=== PATIENT | female | born 1955 | race Caucasian/White ===

== ENCOUNTER 2016-08-01 21:01 | Emergency (ER) | payer BC ==
[~2016-08-01] VITALS: Ht 152.4 cm; Wt 65.0 kg
[~2016-08-01 21:01] MED LIST: ALEN40TA2 PO; CALC-762 PO; IBUP-1542 PO; LOSA50TA6 PO; NAPR-688 PO; OMEP20CA16 PO; SIMV-39 PO
[2016-08-01 21:22] VITALS: Ht 152.4 cm; Wt 65.0 kg
[2016-08-02] MEDS ORDERED: KETOROLAC 30 MG INJ IM STA (00:19)
--- NOTE | 2016-08-02 02:10 | RADRPT ---
PROCEDURE: CT BRAIN WITHOUT CONTRAST CLINICAL INDICATION: 60-year-old female with headaches. TECHNIQUE: The study was performed utilizing a GE Open[employer] + Tuck VCT 64-slice CT scanner. Direct axia l sections were obtained from the foramen magnum to the vertex without the use of intravenous contra st material. Sagittal and coronal reformations were obtained. Automated exposure control and iterat perlita reconstruction techniques were utilized for this examination. The images were viewed on a PACS workstation. CTD/vol = 45.0 mGy; Total Exam DLP = 720.0 mGy-cm. COMPARISON: CT brain September 06, 2015. FINDINGS: The ventricles have a normal size, shape and position. There is no evidence for mass effect or midl ine shift. There are no intracranial areas of abnormal attenuation. There is no evidence for acute intra or extra-axial blood. The bony calvarium is intact. The visualized paranasal sinuses and mast oid air cells are without abnormal soft tissue. IMPRESSION: Unremarkable noncontrast CT scan of the brain. .Milton Rodriguez MD, MD Date Time Electronically viewed and signed by .Milton Rodriguez MD, on 08/02/2016 02:09 .M/
[2016-08-02] MEDS ORDERED: ACET500C5 PO (02:24)
--- NOTE | 2016-08-02 02:39 | ERD ---
ER Documentation Chief Complaint Date/Time DATE: 08/02/16 TIME: 02:29 Chief Complaint headaches x 3 days, facial swelling today HPI 40-year-old female complaining of headache 3 months. She gets headaches daily , and able to localize or describe the pain. She has not taken any medications for pain at home. Patient also complaining of left-sided facial swelling. Patient stated that she has right-sided facial drooping and decreased sensation 4 month. She was seen by her PCP, was sent her for physical therapy. Physical therapy, they massage the right side of her face. In addition, patient complained of feeling dizzy for last 2-3 weeks. She described the dizziness as off balance feeling when she walking, as though it was pulling her on one side. Denies facial pain. Denies fever or chills. Denies peripheral numbness or weakness. Denies recent head injuries. ROS All systems reviewed and are negative except as per history of present illness. Medications Home Meds Active Scripts Acetaminophen* (Tylophen*) 500 Mg Capsule, 1 CAP PO Q6H Y for PAIN AND OR ELEVATED TEMP, #20 CAP Prov:DANIKA BLACK LEASE PURCHASE TRUCK DRIVER 08/02/16 Ibuprofen* (Ibuprofen*) 600 Mg Tablet, 600 MG PO Q6H Y for MILD PAIN LEVEL 1-3, #30 TAB Prov:LISSY ESCOBAR LEASE [employer]CHASE TRUCK DRIVER 04/04/15 Reported Medications Omeprazole* (Omeprazole*) 20 Mg Capsule.dr, 20 MG PO DAILY, #30 CAP 02/07/16 Calcium Carbonate/Vitamin D3 (Oyster Shell Calcium + D Cplt) 1 Each Tablet, 1 EACH PO, TAB 02/07/16 Simvastatin* (Simvastatin*) 80 Mg Tablet, 20 MG PO QHS, #30 TAB 02/07/16 Losartan Potassium* (Losartan Potassium*) 50 Mg Tablet, 50 MG PO DAILY, TAB 02/07/16 Alendronate Sodium* (Alendronate Sodium*) 40 Mg Tablet, 70 MG PO DAILY, #30 TAB 02/07/16 Naproxen* (Naproxen*) 500 Mg Tablet, 500 MG PO BID Y for INFLAMATION, TAB 10/13/14 Allergies Allergies: Coded Allergies: No Known Allergy (Verified , 02/07/16) PMhx/Soc Medical and Surgical Hx: pt denies Medical Hx, pt denies Surgical Hx History of Surgery: Yes (Ex Lap x9 for Colon CA) Anesthesia Reaction: No Hx Neurological Disorder: No Hx Respiratory Disorders: No Hx Cardiac Disorders: No Hx Psychiatric Problems: No Hx Miscellaneous Medical Probl: Yes (Colon CA) Hx Alcohol Use: No Hx Substance Use: No Hx Tobacco Use: No Smoking Status: Never smoker Physical Exam Vitals Vital Signs Date Time Temp Pulse Resp B/P Pulse Ox O2 Delivery O2 Flow Rate FiO2 08/01/16 21:22 98.3 52 20 139/71 98 Physical Exam General impression: Well-developed, well-nourished. Alert, oriented, in no acute distress Head: Normocephalic, atraumatic. Right-sided facial droop and right-sided facial muscle atrophy noted. Eyes: PERRL, EOM normal. Conjunctiva not injected. Neck: Supple, nontender. No lymphanopathy. No nuchal rigidity. Respiration: Normal respiratory effort. Lungs clear to auscultate bilaterally. No wheezes, rales or rhonchi. Cardiovascular: Regular rate and rhythm. No murmurs or extra heart sounds. Extremities: Extremities normal to inspection, nontender. ROM normal. Neuro: Mental status normal, speech normal. Right-sided facial droop and decreased sensation. VEHICLE FUEL SYSTEMS CONVERTER otherwise intact. Normal sensation and strength in all 4 extremities. No focal weakness noted. Romberg negative. Skin: Normal turgor. No rash or lesions. Psych: Normal mood and affect. Results 24 hrs Current Medications Medications (Trade) Dose Ordered Sig/[place] Route PRN Reason Start Time Stop Time Status Last Admin Dose Admin Ketorolac Tromethamine (Toradol) 30 mg ONCE STAT IM 08/02/16 00:19 08/02/16 00:33 DC 08/02/16 00:44 Procedures/MDM Toradol 30 mg IM given to the patient in the ED for headache. Patient reports improvement of pain after Toradol. CT head without IV contrast of the obtained. CT head was normal, no intracranial hemorrhage or mass noted. Likely patient headache is a tension type. Patient also has Perkins's palsy. Since patient symptoms has been persistent for 4 month, I do not feel prednisone is helpful at this time. She does not have any peripheral weakness or decreased sensation, I doubt stroke. Explained to the patient that Perkins's palsy symptoms may take 3-6 months to resolve, occasionally they do not. Patient appears well, stable for discharge and outpatient management. Medical decision making shared with patient and family. Education provided to patient and family. Patient and family expressed understanding of the plan. Medications on discharge: Tylenol. Follow-up: Primary care provider in 2-3 days or return to ED if worse. Departure Diagnosis: Primary Impression: Perkins's palsy Additional Impression: Headache Headache type: tension-type Headache chronicity pattern: acute headache Intractability: not intractable Qualified Code: G44.209 - Acute non intractable tension-type headache Condition: Stable Patient Instructions: Self-Care for Headaches Additional Instructions: Llame al doctor MAANA y kathy tomy JES PARA DENTRO DE 2-3 RIVAS.Dgale a la secretaria que nosotros le instruimos hacer esta jes.Avise o llame si sumner condicin se empeora antes de la jes. Regresa aqui si peor o no mejor. DANIKA BLACK NP Aug 02, 2016 02:39
[2016-08-02 03:21] VITALS: BP 131/75; PULSE 70; RESP 16
== END 2016-08-02 03:23 | disposition home or self-care (01) ==
LOC: FTE 21:01
DX: G51.0 Bell's palsy (principal); G44.209 Tension-type headache, unspecified, not intractable; Z85.038 Personal history of other malignant neoplasm of large intestine
CPT/HCPCS: 70450; J1885; 96372

== ENCOUNTER 2017-02-09 08:36 | Emergency (ER) | payer BC ==
[~2017-02-09] VITALS: Ht 154.9 cm; Wt 67.0 kg
[~2017-02-09 08:36] MED LIST changes: +ACET500C5 PO
[2017-02-09 08:42] VITALS: Ht 154.9 cm; Wt 67.0 kg
[2017-02-09] MEDS ORDERED: KETOROLAC 30 MG INJ IV STA (09:18)
[2017-02-09 09:24] LABS: BASOPHIL # 0.1 10^3/ul (0.0-0.1); BASOPHILS % 1.2 % (0.0-2.0); EOSINOPHILS # 0.1 10^3/ul (0.0-0.5); EOSINOPHILS % 1.4 % (0.0-7.0); HEMOGLOBIN 12.8 g/dl (12.0-16.0); LYMPHOCYTES # 1.3 10^3/ul (0.8-2.9); MEAN CORPUSCULAR HEMOGLOBIN 28.4 pg (29.0-33.0); MEAN CORPUSCULAR HGB CONC 31.2 g/dl (32.0-37.0); MEAN CORPUSCULAR VOLUME 90.9 fl (82.0-101.0); MEAN PLATELET VOLUME 9.6 fl (7.4-10.4); MONOCYTE # 0.3 10^3/ul (0.3-0.9); MONOCYTES % 6.7 % (0.0-11.0); PLATELET COUNT 307 10^3/UL (140-415); RED BLOOD COUNT 4.51 10^6/ul (4.20-5.40); RED CELL DISTRIBUTION WIDTH 13.9 % (11.5-14.5); WHITE BLOOD COUNT 4.2 10^3/ul (4.8-10.8)
--- NOTE | 2017-02-09 09:25 | ERD ---
ER Documentation Chief Complaint Date/Time DATE: 02/09/17 TIME: 09:23 Chief Complaint "vaginal bleeding since earlier this morning" HPI This is a 61-year-old female who presents to the emergency department today complaining of vaginal bleeding that started yesterday. Patient states that she noticed it was a little bit but had more this morning. States she also has some right-sided abdominal pain. States she has a history of colon cancer and had 9 surgeries for her colon. States she last followed up with her doctor about her colon cancer 2 years ago. She has an appointment with her FINGER GRIP MACHINE OPERATOR in 1 month. States she has not had her menstrual period in many many years since her child was born who is now 21. Denies any dysuria, fevers or chills, vomiting or diarrhea. ROS All systems reviewed and are negative except as per history of present illness. Medications Home Meds Active Scripts Cephalexin* (Keflex*) 500 Mg Capsule, 500 MG PO QID for 7 Days, CAP Prov:LISA VAUGHAN PA-C 02/09/17 Naproxen* (Naprosyn*) 500 Mg Tablet, 500 MG PO BID Y for PAIN AND/OR INFLAMMATION, #30 TAB Prov:LISA VAUGHAN PA-C 02/09/17 Tramadol HCl (Tramadol HCl) 50 Mg Tablet, 50 MG PO Q4 Y for PAIN, #20 TAB Prov:LISA VAUGHAN PA-C 02/09/17 Acetaminophen* (Tylophen*) 500 Mg Capsule, 1 CAP PO Q6H Y for PAIN AND OR ELEVATED TEMP, #20 CAP Prov:DANIKA BLACK IMMIGRATION SERVICES OFFICER 08/02/16 Ibuprofen* (Ibuprofen*) 600 Mg Tablet, 600 MG PO Q6H Y for MILD PAIN LEVEL 1-3, #30 TAB Prov:LISSY ESCOBAR NP 04/04/15 Reported Medications Omeprazole* (Omeprazole*) 20 Mg Capsule.dr, 20 MG PO DAILY, #30 CAP 02/07/16 Calcium Carbonate/Vitamin D3 (Oyster Shell Calcium + D Cplt) 1 Each Tablet, 1 EACH PO, TAB 02/07/16 Simvastatin* (Simvastatin*) 80 Mg Tablet, 20 MG PO QHS, #30 TAB 02/07/16 Losartan Potassium* (Losartan Potassium*) 50 Mg Tablet, 50 MG PO DAILY, TAB 02/07/16 Alendronate Sodium* (Alendronate Sodium*) 40 Mg Tablet, 70 MG PO DAILY, #30 TAB 02/07/16 Naproxen* (Naproxen*) 500 Mg Tablet, 500 MG PO BID Y for INFLAMATION, TAB 10/13/14 Allergies Allergies: Coded Allergies: No Known Allergy (Verified , 02/07/16) PMhx/Soc History of Surgery: Yes (Ex Lap x9 for Colon CA) Anesthesia Reaction: No Hx Neurological Disorder: No Hx Respiratory Disorders: No Hx Cardiac Disorders: No Hx Psychiatric Problems: No Hx Miscellaneous Medical Probl: Yes (Colon CA, TMJ) Hx Alcohol Use: No Hx Substance Use: No Hx Tobacco Use: No Physical Exam Vitals Vital Signs Date Time Temp Pulse Resp B/P Pulse Ox O2 Delivery O2 Flow Rate FiO2 02/09/17 11:57 52 21 114/59 98 Room Air 02/09/17 08:42 98.7 62 18 127/73 98 Physical Exam Const: No acute distress Head: Atraumatic Eyes: Normal Conjunctiva ENT: Normal External Ears, Nose and Mouth. Neck: Full range of motion..~ No meningismus. Resp: Clear to auscultation bilaterally Cardio: Regular rate and rhythm, no murmurs Abd: Soft, right lower quadrant tenderness non distended. Normal bowel sounds : Pelvic exam with evidence of brown discharge, no purulent discharge. No cervical motion tenderness. Skin: No petechiae or rashes. Multiple surgical scar Back: No midline or flank tenderness Ext: No cyanosis, or edema Neur: Awake and alert Psych: Normal Mood and Affect Result Diagram: 02/09/17 0910 02/09/17 0910 Results 24 hrs Laboratory Tests Test 02/09/17 09:03 02/09/17 09:10 Urine Color STRAW Urine Clarity CLEAR Urine pH 7.0 Urine Specific [place] 1.003 Urine Ketones NEGATIVEmg/dL Urine Nitrite NEGATIVEmg/dL Urine Bilirubin NEGATIVEmg/dL Urine Urobilinogen NEGATIVEmg/dL Urine Leukocyte Esterase 1+Ankur/ul Urine Microscopic RBC 102/HPF Urine Microscopic WBC 9/HPF Urine Hemoglobin 3+mg/dL Urine Glucose NEGATIVEmg/dL Urine Total Protein NEGATIVEmg/dl White Blood Count 4.210^3/ul Red Blood Count 4.5110^6/ul Hemoglobin 12.8g/dl Hematocrit 41.0% Mean Corpuscular Volume 90.9fl Mean Corpuscular Hemoglobin 28.4pg Mean Corpuscular Hemoglobin Concent 31.2g/dl Red Cell Distribution Width 13.9% Platelet Count 20494^3/UL Mean Platelet Volume 9.6fl Neutrophils % 59.0% Lymphocytes % 31.0% Monocytes % 6.7% Eosinophils % 1.4% Basophils % 1.2% Nucleated Red Blood Cells % 0.0/100WBC Neutrophils # (Manual) 210^3/ul Lymphocytes # 1.310^3/ul Monocytes # 0.310^3/ul Eosinophils # 0.110^3/ul Basophils # 0.110^3/ul Nucleated Red Blood Cells # 0.010^3/ul Sodium Level 141mmol/L Potassium Level 3.8mmol/L Chloride Level 102mmol/L Carbon Dioxide Level 27mmol/L Anion Gap 16 Blood Urea Nitrogen 11mg/dl Creatinine 0.71mg/dl Glucose Level 99mg/dl Calcium Level 9.6mg/dl Total Bilirubin 0.2mg/dl Direct Bilirubin 0.00mg/dl Indirect Bilirubin 0.2mg/dl Aspartate Amino Transf (AST/SGOT) 35IU/L Alanine Aminotransferase (ALT/SGPT) 57IU/L Alkaline Phosphatase 89IU/L Total Protein 8.1g/dl Albumin 4.7g/dl Globulin 3.40g/dl Albumin/Globulin Ratio 1.38 Lipase 160U/L Current Medications Medications (Trade) Dose Ordered Sig/[place] Route PRN Reason Start Time Stop Time Status Last Admin Dose Admin Ketorolac Tromethamine (Toradol) 30 mg ONCE STAT IV 02/09/17 09:18 02/09/17 09:19 DC 02/09/17 09:36 Morphine Sulfate (morphine) 4 mg ONCE STAT IV 02/09/17 11:16 02/09/17 11:17 DC 02/09/17 11:49 Ondansetron HCl (Zofran Inj) 4 mg ONCE STAT IV 02/09/17 11:16 02/09/17 11:17 DC 02/09/17 11:48 DIAGNOSTIC IMAGING REPORT Patient: VERONA SOTELO : 1955 Age: 61 Sex: F MR #: [id number] DOS: 02/09/17 0859 Ordering : LISA VAUGHAN PA-C Location: [facility] Room/Bed: PROCEDURE: CT abdomen and pelvis without contrast. CLINICAL INDICATION: Abdominal Pain TECHNIQUE: CT scan of the abdomen and pelvis without contrast was performed and is reconstructed at 5 mm contiguous axial intervals from the dome of the diaphragm to the inferior pubic rami.. The patient was scanned without intravenous contrast. Sagittal and coronal reformatted images were obtained from the axial source images. The calculated radiation dose measures 663 mGy centimeters. The CTDI measures 12 mGy. COMPARISON: None. FINDINGS: The lung bases are clear of any infiltrate or nodule. No effusion is seen. The liver is of normal size, contour and attenuation with no mass or ductal dilatation. Gallbladder has been removed. No splenic, adrenal or pancreatic abnormalities present. Kidneys are of normal size and contour. No hydronephrosis, calculus or masses seen. Ureters are of normal course and caliber with no stone. No bladder mass or stone is present. Uterus and ovaries are normal. There is no aneurysm. No adenopathy is present. No bowel mass or obstruction is present. There has been resection of the distal sigmoid. There are a few scattered diverticula. The appendix is normal. No phlegmon, ascites or pneumoperitoneum is visualized. The osseous structures are intact. IMPRESSION: No evidence of urolithiasis, obstructive uropathy, diverticulitis or appendicitis. Post cholecystectomy. .Sherif Stark MD, MD Date Time Electronically viewed and signed by .Sherif Stark MD, MD on 02/09/2017 10: 23 .A/ CC: LISA VAUGHAN PA-C DIAGNOSTIC IMAGING REPORT Patient: VERONA SOTELO : 1955 Age: 61 Sex: F MR #: [id number] DOS: 02/09/17 0000 Ordering MD: LISA VAUGHAN PA-C Location: [facility] Room/Bed: PROCEDURE: US Pelvis. CLINICAL INDICATION: Vaginal bleeding TECHNIQUE: Multiple sonographic images of the pelvis were obtained utilizing a transabdominal and endovaginal technique. The images were reviewed on a PACS workstation. COMPARISON: None. FINDINGS: The uterus is visualized and measures 4.9 x 3.1 x 4.5 cm in size. Fluid in the endometrial canal is seen with low-level echoes. The endometrial canal measures 1.3 cm. There is no evidence for free fluid. The bilateral ovaries are not visualized. No adnexal masses are noted. IMPRESSION: Fluid in the endometrial canal with low-level echoes which may represent blood products. Correlation with direct visual inspection may be of value as clinically warranted. RPTAT: HPNM Physician Maite Date Time Electronically viewed and signed by Physician Maite on 02/09/2017 13 :45 / CC: LISA VAUGHAN PA-C Procedures/[facility] This 61-year-old female who presents to the emergency department today complaining of vaginal bleeding that started yesterday and some right-sided abdominal pain. Given patient's age and complaints and history of colon cancer did do a complete abdominal pain workup. Laboratory workup shows no elevated white blood cell count. She is not anemic. Platelets are within normal limits. Electrolytes are within normal limits. Glucose within normal limits. Liver enzymes are within normal limits. Lipase within normal limits. UA shows 1+ leukocyte esterase and 102 endoscopic red blood cells and 9 microscopic white blood cell test is negative. CT abdomen pelvis noncontrast shows no bowel mass or obstruction present. There has been resection of the distal sigmoid. There are a few scattered diverticula. The appendix is normal. There is no ascites or pneumoperitoneum. There is no evidence of urolithiasis, obstructive uropathy, diverticulitis or appendicitis. She is status post cholecystectomy. There is no bladder mass or stone. Uterus and ovaries are normal. I did also obtain a dedicated ultrasound of the pelvis that showed fluid in the endometrial canal with low level echoes which may represent blood products. There is no evidence for free fluid. Bilateral ovaries are not visualized. There are no adnexal masses. Pelvic exam showed evidence of dark brown discharge likely old blood. No purulent drainage. Patient was given Toradol here in the emergency department and patient continue to have a small amount of pain and therefore was given morphine and Zofran. Patient symptoms at this time is consistent with dysfunctional uterine bleeding. I have explained to the patient that this is abnormal. I expect to the patient the importance of going to her FINGER GRIP MACHINE OPERATOR. Patient did indicate she has an appointment next month are explained to her that she should be seen sooner. Patient also has evidence of a urinary tract infection. Low suspicion for acute surgical abdomen. At this time the patient is stable for discharge and outpatient management. Patient should follow up with their PCP in the next 1-2 days. They may return to the emergency department sooner for any persistent or worsening of symptoms. Patient understood and agreed with the plan. Departure Diagnosis: Primary Impression: Vaginal bleeding Additional Impression: UTI (urinary tract infection) Urinary tract infection type: site unspecified Hematuria presence: with hematuria Qualified Code: N39.0 - Urinary tract infection with hematuria, site unspecified Condition: LISA Pendleton PA-C Feb 09, 2017 09:24
[2017-02-09 09:40] LABS: ADD UMIC YES; UR ASCORBIC ACID NEGATIVE (NEGATIVE); UR BILIRUBIN (Dip) NEGATIVE (NEGATIVE); UR BLOOD (Dip) 3+ mg/dL (NEGATIVE); UR CLARITY CLEAR (CLEAR); UR COLOR STRAW (YELLOW); UR GLUCOSE (Dip) NEGATIVE (NEGATIVE); UR KETONES (Dip) NEGATIVE (NEGATIVE); UR LEUKOCYTE ESTERASE (Dip) 1+ Leu/ul (NEGATIVE); UR NITRITE (Dip) NEGATIVE (NEGATIVE); UR RBC 102 /HPF (0-5); UR SPECIFIC GRAVITY (Dip) 1.003 (1.003-1.030); UR TOTAL PROTEIN (Dip) NEGATIVE (NEGATIVE); UR UROBILINOGEN (Dip) NEGATIVE (NEGATIVE)
[2017-02-09 09:50] LABS: ALBUMIN 4.7 g/dl (3.3-4.9); ALBUMIN/GLOBULIN RATIO 1.38; BILIRUBIN,INDIRECT 0.2 mg/dl (0-1.1); BILIRUBIN,TOTAL 0.2 mg/dl (0.2-1.3); CALCIUM 9.6 mg/dl (8.4-10.2); CREATININE 0.71 mg/dl (0.44-1.00); POTASSIUM 3.8 mmol/L (3.5-5.1); TOTAL PROTEIN 8.1 g/dl (6.1-8.1)
--- NOTE | 2017-02-09 10:24 | RADRPT ---
PROCEDURE: CT abdomen and pelvis without contrast. CLINICAL INDICATION: Abdominal Pain TECHNIQUE: CT scan of the abdomen and pelvis without contrast was performed and is reconstructed a t 5 mm contiguous axial intervals from the dome of the diaphragm to the inferior pubic rami.. The p atient was scanned without intravenous contrast. Sagittal and coronal reformatted images were obtai joby from the axial source images. The calculated radiation dose measures [address] measures 12 mGy. COMPARISON: None. FINDINGS: The lung bases are clear of any infiltrate or nodule. No effusion is seen. The liver is of normal size, contour and attenuation with no mass or ductal dilatation. Gallbladder has been removed. No splenic, adrenal or pancreatic abnormalities present. Kidneys are of normal size and contour. No hydronephrosis, calculus or masses seen. Ureters are o f normal course and caliber with no stone. No bladder mass or stone is present. Uterus and ovaries are normal. There is no aneurysm. No adenopathy is present. No bowel mass or obstruction is present. There has been resection of the distal sigmoid. There ar e a few scattered diverticula. The appendix is normal. No phlegmon, ascites or pneumoperitoneum is visualized. The osseous structures are intact. IMPRESSION: No evidence of urolithiasis, obstructive uropathy, diverticulitis or appendicitis. Post cholecystectomy. .Sherif Stark MD, Date Time Electronically viewed and signed by .Sherif Stark MD, on 02/09/2017 10:23 .A/
[2017-02-09] MEDS ORDERED: morphine 4 MG/ML VIAL IV STA (11:16)
[2017-02-09] MEDS ORDERED: ONDANSETRON 4 MG INJ IV STA (11:16)
--- NOTE | 2017-02-09 13:45 | RADRPT ---
PROCEDURE: US Pelvis. CLINICAL INDICATION: Vaginal bleeding TECHNIQUE: Multiple sonographic images of the pelvis were obtained utilizing a transabdominal and endovaginal technique. The images were reviewed on a PACS workstation. COMPARISON: None. FINDINGS: The uterus is visualized and measures 4.9 x 3.1 x 4.5 cm in size. Fluid in the endometrial canal is seen with low-level echoes. The endometrial canal measures 1.3 cm. There is no evidence for free fluid. The bilateral ovaries are not visualized. No adnexal masses are noted. IMPRESSION: Fluid in the endometrial canal with low-level echoes which may represent blood products. Correlatio n with direct visual inspection may be of value as clinically warranted. RPTAT: HPNM Physician Maite Date Time Electronically viewed and signed by Physician Maite on 02/09/2017 13:45 /
[2017-02-09] MEDS ORDERED: TRAM50TA2 PO (14:32)
[2017-02-09] MEDS ORDERED: NAPR-260 PO (14:33)
[2017-02-09] MEDS ORDERED: CEPH-443 PO (14:33)
[2017-02-09 14:54] VITALS: BP 134/95; PULSE 58; RESP 20; TEMP 98.9
== END 2017-02-09 14:55 | disposition home or self-care (01) ==
LOC: FTE 08:36
DX: N93.9 Abnormal uterine and vaginal bleeding, unspecified (principal); N39.0 Urinary tract infection, site not specified; Z85.038 Personal history of other malignant neoplasm of large intestine
CPT/HCPCS: 36415; 74176; 76830; 76856; 80053; 81001; 83690; 85025; 96374; 96375; J1885; J2270; J2405; Z7502

== ENCOUNTER 2017-08-02 15:51 | Emergency (ER) | END 2017-08-02 20:29 | disposition home or self-care (01) ==

== ENCOUNTER 2017-10-24 08:03 | Day surgery (SDC) | END 2017-10-24 11:05 | disposition home or self-care (01) ==

== ENCOUNTER 2018-03-09 21:24 | Emergency (ER) | END 2018-03-10 01:05 | disposition home or self-care (01) ==

== ENCOUNTER 2018-09-04 14:40 | Emergency (ER) | payer BC ==
[~2018-09-04] VITALS: Ht 152.4 cm; Wt 62.2 kg
[~2018-09-04 14:40] MED LIST changes: +ALBU18HF INHALATION; +AMOX500C2 PO; +AZIT250T PO; +BENZ-6 PO; -CALC-762 PO; +CEPH-443 PO; +GABAPENTIN; +LOSA50TA14 PO; -LOSA50TA6 PO; +METHOCARBANOL; +NAPR-985 PO; +OSC500D PO; +PRED20TA PO; +PREDNISONE; +PROM5SYR2 PO; -SIMV-39 PO; +SIMV80TA18 PO; +TRAM50TA2 PO
[2018-09-04 15:06] VITALS: Ht 152.4 cm; Wt 62.2 kg
[2018-09-04] MEDS ORDERED: KETOROLAC 30 MG INJ IM STA (17:44)
--- NOTE | 2018-09-04 17:54 | ERD ---
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 Describes a dull pain which is worse on the right side of the iliac region. She describes vaginal bleeding as every other day with her gone through 1-2 pads. Had an ultrasound 8 months ago which diagnosed her with a type of SHOWCASE TRIMMER cancer. Patient states she is undergone chemoradiation. She has been unable to follow-up with a SHOWCASE TRIMMER oncologist. She otherwise denies chest pain, fevers chills, shortness of breath, dyspnea, bright red blood per rectum, nausea vomiting, abdominal pain. She does report urinary frequency. At time of evaluation patient in no acute distress able to participate in exam with stable vital signs. She otherwise is without complaint. It appears that she has had poor follow-up for her cancer related issues. ROS All systems reviewed and are negative except as per history of present illness. Medications Home Meds Active Scripts Naproxen* (Naprosyn*) 500 Mg Tablet, 500 MG PO BID PRN for PAIN AND/OR INFLAMMATION, #30 TAB Prov:LISA VAUGHAN PA-C 02/09/17 Reported Medications Gabapentin* (Gabapentin*) Unknown Strength Capsule, PO BID, #60 CAP 09/30/18 Ibuprofen* (Ibuprofen*) 800 Mg Tab, 800 MG PO Q6H PRN for PAIN, TAB 09/30/18 Omeprazole* (Omeprazole*) 20 Mg Capsule.dr, 20 MG PO DAILY, #30 CAP 02/07/16 Losartan Potassium* (Losartan Potassium*) 50 Mg Tablet, 50 MG PO DAILY, TAB 02/07/16 Discontinued Reported Medications [Methocarbanol] No Conflict Check 10/24/17 [Gabapentin] No Conflict Check 10/24/17 [Prednisone] No Conflict Check 10/24/17 Calcium Carbonate/Vitamin D3 (Oyster Shell Calcium + D Cplt) 1 Each Tablet, 1 EACH PO, TAB 02/07/16 Simvastatin* (Simvastatin*) 80 Mg Tablet, 20 MG PO QHS, #30 TAB 02/07/16 Alendronate Sodium* (Alendronate Sodium*) 40 Mg Tablet, 70 MG PO DAILY, #30 TAB 02/07/16 Naproxen* (Naproxen*) 500 Mg Tablet, 500 MG PO BID PRN for INFLAMATION, TAB 10/13/14 Discontinued Scripts Tramadol HCl (Tramadol HCl) 50 Mg Tablet, 50 MG PO Q6 PRN for PAIN, #20 TAB Prov:KRISTY KOHLER PA-C 09/04/18 Albuterol Sulfate* (Ventolin HFA*) 18 Gm Hfa.aer.ad, 2 PUFF INHALATION Q4H, #1 INHALER Prov:SUMANTHMANDIEJAMMIE Faith 03/10/18 Prednisone* (Prednisone*) 20 Mg Tab, 40 MG PO DAILY for 4 Days, TAB Prov:SUMANTHMANDIEJAMMIE S. 03/10/18 Azithromycin* (Zithromax*) 250 Mg Tablet, 250 MG PO .BONI DIRECTED, #6 TAB TAKE 500 MG (2 TABS) THE FIRST DAY THEN 250 MG (1 TAB) DAYS 2-5 Prov:MONICAJAMMIE HOLBROOK 03/10/18 Benzonatate* (Tessalon Perle*) 100 Mg Capsule, 100 MG PO Q8H PRN for COUGH, #10 CAP Prov:SUMANTHMANDIEJAMMIE S. 03/10/18 Promethazine HCl/Codeine (Prometh-Codein 6.25-10 mg/5 ml) 5 Ml Syrup, 5 ML PO QHS PRN for COUGH for 5 Days, #120 ML Prov:CHELSIE PEÑA MD 08/02/17 Amoxicillin* (Amoxicillin*) 500 Mg Cap, 500 MG PO TID for 7 Days, CAP Prov:CHELSIE PEÑA MD 08/02/17 Cephalexin* (Keflex*) 500 Mg Capsule, 500 MG PO QID for 7 Days, CAP Prov:LISA VAUGHAN PA-C 02/09/17 Tramadol HCl (Tramadol HCl) 50 Mg Tablet, 50 MG PO Q4 PRN for PAIN, #20 TAB Prov:LISA VAUGHAN PA-C 02/09/17 Acetaminophen* (Tylophen*) 500 Mg Capsule, 1 CAP PO Q6H PRN for PAIN AND OR ELEVATED TEMP, #20 CAP Prov:DANIKA BLACK NP 08/02/16 Ibuprofen* (Ibuprofen*) 600 Mg Tablet, 600 MG PO Q6H PRN for MILD PAIN LEVEL 1- 3, #30 TAB Prov:LISSY ESCOBAR MONTSERRAT Bell NP 04/04/15 Allergies Allergies: Coded Allergies: No Known Allergy (Verified , 09/29/18) PMhx/Soc History of Surgery: Yes (CERVICAL/ENDOMETRIAL BX, COLON CA ANASTAMOSIS, COLOSTOMY WITH REMOVAL) Anesthesia Reaction: No Hx Neurological Disorder: No Hx Respiratory Disorders: No Hx Cardiac Disorders: Yes (HTN, HIGH CHOL) Hx Psychiatric Problems: No Hx Miscellaneous Medical Probl: No Hx Alcohol Use: No Hx Substance Use: No Hx Tobacco Use: No FmHx Family History: No diabetes, No coronary disease, No other Physical Exam Vitals Physical Exam I have reviewed the triage vital signs. Const: Well nourished, well developed, appears stated age Eyes: PERRL, no conjunctival injection HENT: NCAT, Neck supple without meningismus CV: RRR, Warm, well-perfused extremities RESP: CTAB, Unlabored respiratory effort GI: soft, non-tender, non-distended, no masses MSK: No gross deformities appreciated Skin: Warm, dry. No rashes Neuro: grossly non focal Psych: Appropriate mood and affect. Results 24 hrs Laboratory Tests Test 09/04/18 17:58 09/04/18 19:21 Urine Color YELLOW Urine Clarity SLIGHTLY CLOUDY Urine pH 5.0 Urine Specific [place] 1.019 Urine Ketones TRACE mg/dL Urine Nitrite NEGATIVE mg/dL Urine Bilirubin NEGATIVE mg/dL Urine Urobilinogen NEGATIVE mg/dL Urine Leukocyte Esterase 3+ Ankur/ul Urine Microscopic RBC 60 /HPF Urine Microscopic WBC > 182 /HPF Urine Squamous Epithelial Cells FEW /HPF Urine Bacteria FEW /HPF Urine Mucus FEW /HPF Urine Hemoglobin 2+ mg/dL Urine Glucose NEGATIVE mg/dL Urine Total Protein 1+ mg/dl White Blood Count 8.3 10^3/ul Red Blood Count 4.62 10^6/ul Hemoglobin 13.0 g/dl Hematocrit 41.5 % Mean Corpuscular Volume 89.8 fl Mean Corpuscular Hemoglobin 28.1 pg Mean Corpuscular Hemoglobin Concent 31.3 g/dl Red Cell Distribution Width 13.6 % Platelet Count 334 10^3/UL Mean Platelet Volume 9.3 fl Immature Granulocytes % 0.400 % Neutrophils % 78.4 % Lymphocytes % 14.6 % Monocytes % 5.4 % Eosinophils % 0.6 % Basophils % 0.6 % Nucleated Red Blood Cells % 0.0 /100WBC Immature Granulocytes # 0.030 10^3/ul Neutrophils # 6.5 10^3/ul Lymphocytes # 1.2 10^3/ul Monocytes # 0.5 10^3/ul Eosinophils # 0.1 10^3/ul Basophils # 0.1 10^3/ul Nucleated Red Blood Cells # 0.0 10^3/ul Sodium Level 138 mmol/L Potassium Level 4.1 mmol/L Chloride Level 103 mmol/L Carbon Dioxide Level 29 mmol/L Anion Gap 6 Blood Urea Nitrogen 16 mg/dl Creatinine 0.69 mg/dl Est Glomerular Filtrat Rate mL/min > 60 mL/min Glucose Level 112 mg/dl Calcium Level 9.9 mg/dl Total Bilirubin 0.3 mg/dl Direct Bilirubin 0.00 mg/dl Indirect Bilirubin 0.3 mg/dl Aspartate Amino Transf (AST/SGOT) 25 IU/L Alanine Aminotransferase (ALT/SGPT) 21 IU/L Alkaline Phosphatase 97 IU/L Total Protein 8.2 g/dl Albumin 4.5 g/dl Globulin 3.70 g/dl Albumin/Globulin Ratio 1.21 Current Medications Medications Dose Sig/[place] Start Time Status Last (Trade) Ordered Route PRN Stop Time Admin Dose Reason Admin Ketorolac 30 mg ONCE STAT 09/04/18 DC 09/04/18 Tromethamine IM 17:44 18:02 (Toradol) 09/04/18 17:49 Procedures/MDM 62 y/o F presenting with pelvic pain and non massive vaginal bleeding. She has a history of SHOWCASE TRIMMER malignancy s/p chemo/radiation. Ddx symptoms related to SHOWCASE TRIMMER type malignancy, UTI, PID. Less likely ovarian torsion, endometriosis, ruptured ovarian cyst, TOA, mittelschmerz. Low suspicion for abdominal etiologies also include appendicitis, psoas abscess, kidney stone, pyelo, incarcerated hernia, diverticulitis. She otherwise denies chest pain, fevers chills, shortness of breath, dyspnea, bright red blood per rectum, nausea vomiting, abdominal pain. At time of evaluation and discharge patient in no acute distress able to participate in exam with stable vital signs. She otherwise is without complaint. It appears that she has had poor follow-up for her cancer related issues. ED course: Hemodynamically stable H/H wnl UA no evidence of infection warranting treatment Pelvic U/S without acute findings IMPRESSION: Multiple hyperechoic lesions in the uterus measuring up to 2.3 cm, nonspecific. These could be further evaluated with contrast-enhanced CT or MRI, as clinically warranted. The ovaries are not visualized. Patient well-appearing with normal vital signs. Laboratory testing and imaging here reviewed and normal. Patient given strict return precautions for worsening pain, inability to eat/drink, fevers (temperature over 100.4F), or other concern s. Patient instructed to follow up with their primary doctor and SHOWCASE TRIMMER specialist and is agreeable; all questions were answered. Departure Diagnosis: Primary Impression: Vaginal bleeding Condition: Stable KRISTY KOHLER PA-C Sep 04, 2018 17:54
[2018-09-04] MEDS ORDERED: TRAM50TA2 PO (20:30)
[2018-09-04 20:49] VITALS: BP 104/52; PULSE 62; RESP 17
== END 2018-09-04 20:50 | disposition home or self-care (01) ==
LOC: FTE 14:40
DX: N93.9 Abnormal uterine and vaginal bleeding, unspecified (principal); I10 Essential (primary) hypertension
CPT/HCPCS: 76830; 76856; 80053; 81001; 85025; 86900; 86901; J1885; 36415; 96372

== ENCOUNTER 2018-09-29 20:26 | Inpatient (IN) | payer BC ==
[~2018-09-29] VITALS: Ht 167.6 cm; Wt 62.9 kg
[2018-09-29] MEDS ORDERED: ACETAMINOPHEN 500 MG TAB PO STA (21:46)
[2018-09-29] MEDS ORDERED: SODIUM CHLORIDE 0.9% 1L BAG IV* STA (21:46)
[2018-09-30] VITALS (15 sets, daily range): BP systolic 88–139; BP diastolic 5–63; PULSE 44–59; RESP 18–20; Ht 167.6 cm; Wt 62.9 kg
[2018-09-30] MEDS ORDERED: morphine 4 MG/ML VIAL IV STA (00:43)
[2018-09-30] MEDS ORDERED: ONDANSETRON 4 MG INJ IV STA (00:43)
[2018-09-30] MEDS ORDERED: CEFTRIAXONE 1 GM/50 ML (PMX) 50 ML IVPB ONE (01:00)
--- NOTE | 2018-09-30 01:19 | ERD ---
ER Documentation Chief Complaint Chief Complaint c/o vaginal bleed w/ clots +dizziness and +pain HPI This is a very pleasant 62-year-old female comes in with points of dizziness and almost passing out stage. She says been passing clots vaginally. She also complains of lower abdominal pain urgency frequency of urination. Mild fever. No chills. No nausea no vomiting. ROS All systems reviewed and are negative except as per history of present illness. Medications Home Meds Active Scripts Tramadol HCl (Tramadol HCl) 50 Mg Tablet, 50 MG PO Q6 PRN for PAIN, #20 TAB Prov:KRISTY KOHLER PA-C 09/04/18 Albuterol Sulfate* (Ventolin HFA*) 18 Gm Hfa.aer.ad, 2 PUFF INHALATION Q4H, #1 INHALER Prov:JAMMIE VALLADARES 03/10/18 Prednisone* (Prednisone*) 20 Mg Tab, 40 MG PO DAILY for 4 Days, TAB Prov:JAMMIE VALLADARES 03/10/18 Azithromycin* (Zithromax*) 250 Mg Tablet, 250 MG PO .[place]av[place]PACK DIRECTED, #6 TAB TAKE 500 MG (2 TABS) THE FIRST DAY THEN 250 MG (1 TAB) DAYS 2-5 Prov:JAMMIE VALLADARES 03/10/18 Benzonatate* (Tessalon Perle*) 100 Mg Capsule, 100 MG PO Q8H PRN for COUGH, #10 CAP Prov:JAMMIE VALLADARES 03/10/18 Promethazine HCl/Codeine (Prometh-Codein 6.25-10 mg/5 ml) 5 Ml Syrup, 5 ML PO QHS PRN for COUGH for 5 Days, #120 ML Prov:CHELSIE PEÑA MD 08/02/17 Amoxicillin* (Amoxicillin*) 500 Mg Cap, 500 MG PO TID for 7 Days, CAP Prov:CHELSIE PEÑA MD 08/02/17 Cephalexin* (Keflex*) 500 Mg Capsule, 500 MG PO QID for 7 Days, CAP Prov:LISA VAUGHAN PA-C 02/09/17 Naproxen* (Naprosyn*) 500 Mg Tablet, 500 MG PO BID PRN for PAIN AND/OR INFLAMMATION, #30 TAB Prov:LISA VAUGHAN PA-C 02/09/17 Tramadol HCl (Tramadol HCl) 50 Mg Tablet, 50 MG PO Q4 PRN for PAIN, #20 TAB Prov:LISA VAUGHAN PA-C 02/09/17 Acetaminophen* (Tylophen*) 500 Mg Capsule, 1 CAP PO Q6H PRN for PAIN AND OR ELEVATED TEMP, #20 CAP Prov:DANIKA BLACK [employer]ERIALS INSPECTOR 08/02/16 Ibuprofen* (Ibuprofen*) 600 Mg Tablet, 600 MG PO Q6H PRN for MILD PAIN LEVEL 1- 3, #30 TAB Prov:LISSY ESCOBAR MATERIALS INSPECTOR 04/04/15 Reported Medications [Methocarbanol] No Conflict Check 10/24/17 [Gabapentin] No Conflict Check 10/24/17 [Prednisone] No Conflict Check 10/24/17 Omeprazole* (Omeprazole*) 20 Mg Capsule.dr, 20 MG PO DAILY, #30 CAP 02/07/16 Calcium Carbonate/Vitamin D3 (Oyster Shell Calcium + D Cplt) 1 Each Tablet, 1 EACH PO, TAB 02/07/16 Simvastatin* (Simvastatin*) 80 Mg Tablet, 20 MG PO QHS, #30 TAB 02/07/16 Losartan Potassium* (Losartan Potassium*) 50 Mg Tablet, 50 MG PO DAILY, TAB 02/07/16 Alendronate Sodium* (Alendronate Sodium*) 40 Mg Tablet, 70 MG PO DAILY, #30 TAB 02/07/16 Naproxen* (Naproxen*) 500 Mg Tablet, 500 MG PO BID PRN for INFLAMATION, TAB 10/13/14 Allergies Allergies: Coded Allergies: No Known Allergy (Verified , 09/29/18) PMhx/Soc History of Surgery: Yes (CERVICAL/ENDOMETRIAL BX, COLON CA ANASTAMOSIS, COLOSTOMY WITH REMOVAL) Anesthesia Reaction: No Hx Neurological Disorder: No Hx Respiratory Disorders: No Hx Cardiac Disorders: Yes (HTN, HIGH CHOL) Hx Psychiatric Problems: No Hx Miscellaneous Medical Probl: No Hx Alcohol Use: No Hx Substance Use: No Hx Tobacco Use: No Smoking Status: Never smoker Physical Exam Vitals Vital Signs Date Temp Pulse Resp B/P (MAP) Pulse Ox O2 O2 Flow FiO2 Time Delivery Rate 09/30/18 60 19 96/59 (71) 97 Room Air 00:24 09/29/18 101.2 84 20 125/67 96 20:34 (86) Physical Exam Const: No acute distress Head: Atraumatic Eyes: Normal Conjunctiva ENT: Normal External Ears, Nose and Mouth. Neck: Full range of motion. No meningismus. Resp: Clear to auscultation bilaterally Cardio: Regular rate and rhythm, no murmurs Abd: Soft, non tender, non distended. Normal bowel sounds Skin: No petechiae or rashes Back: No midline or flank tenderness Ext: No cyanosis, or edema Neur: Awake and alert Psych: Normal Mood and Affect Result Diagram: 09/29/18221209/29/182212 Results 24 hrs Laboratory Tests Test 09/29/18 22:10 09/29/18 22:13 09/29/18 22:37 POC Venous Lactate 1.0 mmol/L White Blood Count 8.6 10^3/ul Red Blood Count 4.58 10^6/ul Hemoglobin 12.8 g/dl Hematocrit 40.6 % Mean Corpuscular Volume 88.6 fl Mean Corpuscular Hemoglobin 27.9 pg Mean Corpuscular 31.5 g/dl Hemoglobin Concent Red Cell Distribution Width 13.8 % Platelet Count 330 10^3/UL Mean Platelet Volume 9.8 fl Immature Granulocytes % 0.200 % Neutrophils % 78.2 % Lymphocytes % 14.3 % Monocytes % 6.1 % Eosinophils % 0.7 % Basophils % 0.5 % Nucleated Red Blood Cells % 0.0 /100WBC Immature Granulocytes # 0.020 10^3/ul Neutrophils # 6.7 10^3/ul Lymphocytes # 1.2 10^3/ul Monocytes # 0.5 10^3/ul Eosinophils # 0.1 10^3/ul Basophils # 0.0 10^3/ul Nucleated Red Blood Cells # 0.0 10^3/ul Prothrombin Time 12.3 Sec Prothrombin Time Ratio 1.0 INR International 0.90 Normalized Ratio Activated Partial Thromboplast 25.2 Sec Time Sodium Level 138 mmol/L Potassium Level 4.0 mmol/L Chloride Level 102 mmol/L Carbon Dioxide Level 24 mmol/L Anion Gap 12 Blood Urea Nitrogen 9 mg/dl Creatinine 0.67 mg/dl Est Glomerular Filtrat > 60 mL/min Rate mL/min Glucose Level 111 mg/dl Calcium Level 9.7 mg/dl Total Bilirubin 0.3 mg/dl Direct Bilirubin 0.00 mg/dl Indirect Bilirubin 0.3 mg/dl Aspartate Amino Transf (AST/SGOT) 27 IU/L Alanine 18 IU/L Aminotransferase (ALT/SGPT) Alkaline Phosphatase 96 IU/L Troponin I < 0.012 ng/ml Total Protein 8.1 g/dl Albumin 4.4 g/dl Globulin 3.70 g/dl Albumin/Globulin Ratio 1.18 Urine Color YELLOW Urine Clarity CLOUDY Urine pH 8.0 Urine Specific [place] 1.009 Urine Ketones NEGATIVE mg/dL Urine Nitrite NEGATIVE mg/dL Urine Bilirubin NEGATIVE mg/dL Urine Urobilinogen NEGATIVE mg/dL Urine Leukocyte Esterase 3+ Ankur/ul Urine Microscopic RBC 126 /HPF Urine Microscopic WBC > 182 /HPF Urine Bacteria FEW /HPF Urine Mucus FEW /HPF Urine Hemoglobin 2+ mg/dL Urine Glucose NEGATIVE mg/dL Urine Total Protein 1+ mg/dl Current Medications Medications Dose Sig/[place] Start Time Status Last (Trade) Ordered Route PRN Stop Time Admin Dose Reason Admin Sodium 1,860 ml BOLUS OVER 2 09/29/18 DC 09/29/18 Chloride HOURS STAT 21:46 09/29/18 22:13 (NS) IV* 21:49 1,000 mg ONCE STAT 09/29/18 DC 09/29/18 Acetaminophen PO 21:46 09/29/18 22:13 (Tylenol 21:49 Tab) Ceftriaxone 50 ml @ ONCE ONCE 09/30/18 09/30/18 Sodium 100 mls/hr IVPB 01:00 09/30/18 00:55 01:29 Morphine 4 mg ONCE STAT 09/30/18 DC 09/30/18 Sulfate IV 00:43 09/30/18 00:55 (morphine) 00:44 Ondansetron 4 mg ONCE STAT 09/30/18 DC 09/30/18 HCl (Zofran IV 00:43 09/30/18 00:55 Inj) 00:44 Procedures/MDM EKG: Rate/Rhythm: [Normal Sinus Rhythm] QRS, ST, T-waves: [No changes consistent w/ acute ischemia] Impression: [No evidence of ischemia or arrhythmia] Chest X-ray 1V Interpreted by me: Soft Tissue: No acute abnormalities Bones: No acute abnormalities Mediastinum/Cardiac Silhouette/Lungs: [No acute abnormalities] Medical decision makin-year-old female has near syncopal episode and evid ence of urinary tract infection. No evidence of sepsis. Given dose of Rocephin for UTI post cultures. Patient will be admitted to Dr. Ayala patient admission. Departure Diagnosis: Primary Impression: Dizziness Condition: Serious JAMMIE VALLADARES Sep 30, 2018 01:19
[2018-09-30] MEDS ORDERED: IBUP-1545 PO (02:21)
[2018-09-30] MEDS ORDERED: GABA300C16 PO (02:22)
[2018-09-30] MEDS: SOD CHLORIDE 0.9% 1,000 ML IV SCH ×3 (04:34→23:17)
[2018-09-30] MEDS: morphine 2 MG INJ IV PRN ×2 (04:34→20:25)
[2018-09-30] MEDS: PANTOPRAZOLE 40 MG INJ IV SCH (06:13)
[2018-09-30] MEDS ORDERED: ASPIRIN (EC) 81 MG TAB PO SCH (09:00)
--- NOTE | 2018-09-30 10:46 | QN ---
Documentation Comment seen and examined KARYNA FRANZ MD Sep 30, 2018 10:46
[2018-09-30] MEDS ORDERED: SOD CHLORIDE 0.9% 500 ML IV ONE (11:00)
[2018-09-30] MEDS: ACETAMINOPHEN 325 MG TAB PO PRN ×2 (11:18→23:17)
--- NOTE | 2018-09-30 11:39 | CONS ---
Consultation Date/Type/Reason Admit Date/Time Sep 30, 2018 at 00:44 Type of Consult Cardiology Date/Time of Note DATE: 09/30/18 TIME: 11:38 Hx of Present Illness Pt comfortable - HR in 50s - BP stable - Vag bleed suspected - will monitor for now # [id number] Past Medical History Home Meds Active Scripts Naproxen* (Naprosyn*) 500 Mg Tablet, 500 MG PO BID PRN for PAIN AND/OR INFLAMMATION, #30 TAB Prov:LISA VAUGHAN PA-C 02/09/17 Reported Medications Gabapentin* (Gabapentin*) Unknown Strength Capsule, PO BID, #60 CAP 09/30/18 Ibuprofen* (Ibuprofen*) 800 Mg Tab, 800 MG PO Q6H PRN for PAIN, TAB 09/30/18 Omeprazole* (Omeprazole*) 20 Mg Capsule.dr, 20 MG PO DAILY, #30 CAP 02/07/16 Losartan Potassium* (Losartan Potassium*) 50 Mg Tablet, 50 MG PO DAILY, TAB 02/07/16 Discontinued Reported Medications [Methocarbanol] No Conflict Check 10/24/17 [Gabapentin] No Conflict Check 10/24/17 [Prednisone] No Conflict Check 10/24/17 Calcium Carbonate/Vitamin D3 (Oyster Shell Calcium + D Cplt) 1 Each Tablet, 1 EACH PO, TAB 02/07/16 Simvastatin* (Simvastatin*) 80 Mg Tablet, 20 MG PO QHS, #30 TAB 02/07/16 Alendronate Sodium* (Alendronate Sodium*) 40 Mg Tablet, 70 MG PO DAILY, #30 TAB 02/07/16 Naproxen* (Naproxen*) 500 Mg Tablet, 500 MG PO BID PRN for INFLAMATION, TAB 10/13/14 Discontinued Scripts Tramadol HCl (Tramadol HCl) 50 Mg Tablet, 50 MG PO Q6 PRN for PAIN, #20 TAB Prov:KRISTY KOHLER PA-C 09/04/18 Albuterol Sulfate* (Ventolin HFA*) 18 Gm Hfa.aer.ad, 2 PUFF INHALATION Q4H, #1 INHALER Prov:JAMMIE VALLADARES 03/10/18 Prednisone* (Prednisone*) 20 Mg Tab, 40 MG PO DAILY for 4 Days, TAB Prov:JAMMIE VALLADARES 03/10/18 Azithromycin* (Zithromax*) 250 Mg Tablet, 250 MG PO .BONI DIRECTED, #6 TAB TAKE 500 MG (2 TABS) THE FIRST DAY THEN 250 MG (1 TAB) DAYS 2-5 Prov:SUMANTHMANDIEJAMMIE Faith 03/10/18 Benzonatate* (Tessalon Perle*) 100 Mg Capsule, 100 MG PO Q8H PRN for COUGH, #10 CAP Prov:SUMANTHHERIBERTO LOCKWOODEL Faith 03/10/18 Promethazine HCl/Codeine (Prometh-Codein 6.25-10 mg/5 ml) 5 Ml Syrup, 5 ML PO QHS PRN for COUGH for 5 Days, #120 ML Prov:CHELSIE PEÑA MD 08/02/17 Amoxicillin* (Amoxicillin*) 500 Mg Cap, 500 MG PO TID for 7 Days, CAP Prov:CHELSIE PEÑA MD 08/02/17 Cephalexin* (Keflex*) 500 Mg Capsule, 500 MG PO QID for 7 Days, CAP Prov:LISA VAUGHAN PA-C 02/09/17 Tramadol HCl (Tramadol HCl) 50 Mg Tablet, 50 MG PO Q4 PRN for PAIN, #20 TAB Prov:LISA VAUGHAN PA-C 02/09/17 Acetaminophen* (Tylophen*) 500 Mg Capsule, 1 CAP PO Q6H PRN for PAIN AND OR ELEVATED TEMP, #20 CAP Prov:DANIKA BLACK NP 08/02/16 Ibuprofen* (Ibuprofen*) 600 Mg Tablet, 600 MG PO Q6H PRN for MILD PAIN LEVEL 1- 3, #30 TAB Prov:LISSY ESCOBAR NP 04/04/15 Medications Current Medications Morphine Sulfate (morphine) 2 mg Q6 PRN IV SEVERE PAIN LEVEL 7-10 Last administered on 09/30/18at 04:34; Admin Dose 2 MG; Start 09/30/18 at 04:06 Acetaminophen (Tylenol Tab) 650 mg Q6H PRN PO MILD PAIN(1-3)OR ELEVATED TEMP Last administered on 09/30/18at 11:18; Admin Dose 650 MG; Start 09/30/18 at 04:10 Pantoprazole (Protonix Iv) 40 mg DAILY@06 IV Last administered on 09/30/18at 06:13; Admin Dose 40 MG; Start 09/30/18 at 06:00 Sodium Chloride 1,000 ml @ 100 mls/hr Q10H IV Last administered on 09/30/18at 04:34; Admin Dose 70 MLS/HR; Start 09/30/18 at 04:30 Ceftriaxone Sodium 50 ml @ 100 mls/hr Q24H IVPB ; Start 10/01/18 at 01:00 Sodium Chloride 500 ml @ 500 mls/hr Q1H ONCE IV Last administered on 09/30/18at 11:13; Admin Dose 500 MLS/HR; Start 09/30/18 at 11:00; Stop 09/30/18 at 11:59 Allergies: Coded Allergies: No Known Allergy (Verified , 09/29/18) Social History Smoking Status: Never smoker Exam/Review of Systems Vital Signs Vitals Vital Signs Date Temp Pulse Resp B/P (MAP) Pulse Ox O2 O2 Flow FiO2 Time Delivery Rate 09/30/18 98.5 59 20 104/54 99 11:19 (71) 09/30/18 Room Air 04:37 Intake and Output 09/29/18 09/29/18 09/30/18 1515:00 23:00 07:00 IntakeIntake Total 50 ml BalanceBalance 50 ml Labs Result Diagram: 09/30/18 0607 09/30/1807 Results 24hrs Laboratory Tests Test 09/29/18 22:10 09/29/18 22:13 09/29/18 22:37 09/30/18 02:56 POC Venous Lactate 1.0 White Blood Count 8.6 Red Blood Count 4.58 Hemoglobin 12.8 Hematocrit 40.6 Mean Corpuscular Volume 88.6 Mean Corpuscular 27.9 L Hemoglobin Mean Corpuscular 31.5 L Hemoglobin Concent Red Cell Distribution 13.8 Width Platelet Count 330 Mean Platelet Volume 9.8 Immature Granulocytes % 0.200 Neutrophils % 78.2 H Lymphocytes % 14.3 L Monocytes % 6.1 Eosinophils % 0.7 Basophils % 0.5 Nucleated Red Blood 0.0 Cells % Immature Granulocytes # 0.020 Neutrophils # 6.7 Lymphocytes # 1.2 Monocytes # 0.5 Eosinophils # 0.1 Basophils # 0.0 Nucleated Red Blood 0.0 Cells # Prothrombin Time 12.3 Prothrombin Time Ratio 1.0 INR International 0.90 Normalized Ratio Activated 25.2 Partial Thromboplast Time Sodium Level 138 Potassium Level 4.0 Chloride Level 102 Carbon Dioxide Level 24 Anion Gap 12 Blood Urea Nitrogen 9 Creatinine 0.67 Est Glomerular Filtrat > 60 Rate mL/min Glucose Level 111 Calcium Level 9.7 Total Bilirubin 0.3 Direct Bilirubin 0.00 Indirect Bilirubin 0.3 Aspartate Amino 27 Transf (AST/SGOT) Alanine 18 Aminotransferase (ALT/SG PT) Alkaline Phosphatase 96 Troponin I < 0.012 Total Protein 8.1 Albumin 4.4 Globulin 3.70 H Albumin/Globulin Ratio 1.18 Urine Color YELLOW Urine Clarity CLOUDY A Urine pH 8.0 Urine Specific [place] 1.009 Urine Ketones NEGATIVE Urine Nitrite NEGATIVE Urine Bilirubin NEGATIVE Urine Urobilinogen NEGATIVE Urine Leukocyte Esterase 3+ H Urine Microscopic RBC 126 H Urine Microscopic WBC > 182 H Urine Bacteria FEW A Urine Mucus FEW A Urine Hemoglobin 2+ H Urine Glucose NEGATIVE Urine Total Protein 1+ H Lactic Acid Level 1.1 Test 09/30/18 06:07 09/30/18 09:57 White Blood Count 6.4 # Red Blood Count 3.97 L Hemoglobin 10.9 L Hematocrit 36.1 L Mean Corpuscular Volume 90.9 Mean Corpuscular 27.5 L Hemoglobin Mean Corpuscular 30.2 L Hemoglobin Concent Red Cell Distribution 14.0 Width Platelet Count 299 Mean Platelet Volume 9.6 Immature Granulocytes % 0.500 H Neutrophils % 67.8 Lymphocytes % 21.1 Monocytes % 8.1 Eosinophils % 1.9 Basophils % 0.6 Nucleated Red Blood 0.0 Cells % Immature Granulocytes # 0.030 Neutrophils # 4.3 Lymphocytes # 1.4 Monocytes # 0.5 Eosinophils # 0.1 Basophils # 0.0 Nucleated Red Blood 0.0 Cells # Sodium Level 139 Potassium Level 3.9 Chloride Level 106 Carbon Dioxide Level 24 Anion Gap 9 Blood Urea Nitrogen 10 Creatinine 0.61 Est Glomerular Filtrat > 60 Rate mL/min Glucose Level 110 Calcium Level 8.1 L Total Bilirubin 0.3 Direct Bilirubin 0.00 Indirect Bilirubin 0.3 Aspartate Amino 43 Transf (AST/SGOT) Alanine 25 Aminotransferase (ALT/SG PT) Alkaline Phosphatase 71 Troponin I < 0.012 < 0.012 Total Protein 6.5 # Albumin 3.4 # Globulin 3.10 Albumin/Globulin Ratio 1.09 Triglycerides Level 140 Cholesterol Level 193 LDL Cholesterol, 124 Calculated HDL Cholesterol 41 Cholesterol/HDL Ratio 4.7 Medications Medications Current Medications Morphine Sulfate (morphine) 2 mg Q6 PRN IV SEVERE PAIN LEVEL 7-10 Last administered on 09/30/18 04:34; Admin Dose 2 MG; Start 09/30/18 at 04:06 Acetaminophen (Tylenol Tab) 650 mg Q6H PRN PO MILD PAIN(1-3)OR ELEVATED TEMP Last administered on 09/30/18 11:18; Admin Dose 650 MG; Start 09/30/18 at 04:10 Pantoprazole (Protonix Iv) 40 mg DAILY@06 IV Last administered on 09/30/18 06:13; Admin Dose 40 MG; Start 09/30/18 at 06:00 Sodium Chloride 1,000 ml @ 100 mls/hr Q10H IV Last administered on 09/30/18 04:34; Admin Dose 70 MLS/HR; Start 09/30/18 at 04:30 Ceftriaxone Sodium 50 ml @ 100 mls/hr Q24H IVPB ; Start 10/01/18 at 01:00 Sodium Chloride 500 ml @ 500 mls/hr Q1H ONCE IV Last administered on 09/30/18at 11:13; Admin Dose 500 MLS/HR; Start 09/30/18 at 11:00; Stop 09/30/18 at 11:59 SULTANA TALBOT MD Sep 30, 2018 11:39
--- NOTE | 2018-09-30 13:25 | HP ---
DATE OF ADMISSION: 09/30/2018 REASON FOR ADMISSION: Near syncope, vaginal bleeding. HISTORY OF PRESENT ILLNESS: This is a 62-year-old female with a past medical history of rectal cance r status post chemotherapy, radiation, colostomy and now with colostomy reversal. According to the p maria luz, she was diagnosed with colon cancer, which has been in remission now. She was found to have a new pelvic cancer. She is supposed to see [facility] as an outpatient. According to the patient, she started noticing lower abdominal pain for the last 4 days and also was having some vaginal bleeding. According to her, she was also passing blood clots. The patient was having urgency and frequency o f urination. The patient was having some headache and mild nausea. The patient felt that almost she passed out, but never really passed out and came to the Emergency Department. On arrival to ED, vit al signs showed blood pressure 105/52, heart rate 50, afebrile, respiratory rate 18, saturating 93% o n room air. The patient also had a pelvic ultrasound that showed grossly stable hyperechoic foci wit hin the uterus. A chest x-ray was within normal limit and labs showed hemoglobin 12.8, platelet coun t 330. BMP within normal limit and patient was treated for UTI and admitted for further management. PAST MEDICAL HISTORY: 1. History of rectal cancer, status post colostomy, now with colostomy reversal. 2. History of incarcerated ventral hernia status post surgery. 3. History of laparoscopic cholecystectomy. 4. Questionable new pelvic cancer. 5. Hypertension. 6. Hyperlipidemia. ALLERGIES: None. PAST SURGICAL HISTORY: The patient has 9 surgeries before included colostomy reversal, incarcerated hernia, cholecystectomy. SOCIAL HISTORY: Denies any history of smoking, alcohol or any drug use. Lives with her and son. FAMILY HISTORY: Significant for cancers and 3 sisters including the breast. REVIEW OF SYSTEMS: The patient complained of vaginal bleeding, lower abdominal pain, denied any feve rs or chills. Denies any chest pain and shortness of breath. Complained of mild headache, some naus ea. Denied any hematemesis, any melena, any bright red blood per rectum. PHYSICAL EXAMINATION: VITAL SIGNS: Currently, blood pressure 190/54, afebrile, heart rate is 45, respirations 16. GENERAL: The patient is awake, alert, oriented, does not appear to be in any acute distress. HEENT: Pupils equal, round, reactive to light. Oral mucosa dry. NECK: Supple. HEART: Bradycardic. LUNGS: Clear to auscultate bilaterally. ABDOMEN: Some suprapubic tenderness present. EXTREMITIES: No clubbing, cyanosis, or edema. LABORATORY DATA: Shows BMP within normal limits. LFTs within normal limits. White count of 8.6, he moglobin 12.8, platelet count 330. UA shows 126 RBCs, 182 WBCs. EKG shows sinus bradycardia. ASSESSMENT AND PLAN: This is a 62-year-old female with: 1. Near syncope, could be secondary to urinary tract infection plus hypotension. Patient also was b radycardic. 2. Severe bradycardia. Patient is not on any beta bird. Need to rule out for TSH. 3. A pelvic malignancy, questionable. 4. Urinary tract infection. 5. History of rectal cancer status post reversal. 6. History of ventral hernia, status post incarceration. 7. Hypertension, now hypotensive. 8. Hyperlipidemia. PLAN: At this period of time, the patient is admitted to telemetry. The patient is on IV antibiotic s, Rocephin. We will give the patient NS bolus. The patient will be on IV fluids. We will send for urine cultures. We will also get serial troponins, echo. We will call cardiology consultation. Th e rest of the treatment will depend on the patient's hospitalization course. Dictated By: KARYNA VILLA/CLARISSA Conf#: [id number] DID#: [id number] CC: PANDA FORREST MD;*[facility]*
--- NOTE | 2018-09-30 14:34 | CONS ---
DATE OF ADMISSION: 09/30/2018 DATE OF CONSULTATION: 09/30/2018 TYPE OF CONSULTATION: Cardiology. REFERRING PHYSICIANS: Dashawn Forrest MD REASON FOR EVALUATION: Bradycardia. HISTORY OF PRESENT ILLNESS: Ms. Moulton is a 62-year-old woman with history of endometrial ca ncer, who comes to the hospital for evaluation of vaginal bleeding. I have been asked to see the pat iereyes in consultation because in the setting of this event she also had significant bradycardia at 51. The patient has had a near syncopal episode. The patient does appear to be bradycardic now at 51, although her blood pressure appears to be fairly well maintained. Her hemoglobin is from 12.8 yester day to 10.9 now suggests significant bleeding. She is going to have abdominal CT. I reviewed her me dications carefully. It appears at this particular point, she is not on any AV rosita agents. She sa ys she has never had any history of bradycardia in the past. The extent of her disease is unclear, b ut it might be fairly significant. I think for now, conservative therapy is expected. We are going to monitor the patient. She is going to have a blood transfusion and close followup, awaiting the re sults of the CT. PAST MEDICAL HISTORY: History of endometrial cancer, history of dyslipidemia, history of GERD. ALLERGIES: NO KNOWN DRUG ALLERGIES. HOME MEDICATIONS: Include: 1. Tramadol. 2. Albuterol. 3. Prednisone. 4. Azithromycin. 5. . 6. Promethazine. 7. Amoxicillin. 8. Cephalexin. 9. Naprosyn. 10. Acetaminophen. REVIEW OF SYSTEMS: CONSTITUTIONAL: No fevers, no chills. Abdominal discomfort as described. HEENT: No changes in vision or hearing. CARDIAC: Chest pain reported now. RESPIRATORY: Shortness of breath. GASTROINTESTINAL: Abdominal distention. GENITOURINARY: Now vaginal bleeding as described. PSYCHIATRIC: No history of psychiatric illness. PHYSICAL EXAMINATION: VITAL SIGNS: Temperature 98.5, blood pressure 104/54, heart rate is now 59. GENERAL: She is a well-nourished woman in no acute distress, alert and oriented x3, speaking Bulgarian , aware of her condition. HEENT: Head is normocephalic, atraumatic. Extraocular movements are intact. NECK: Supple. JVD is 6 cm. No lymphadenopathy. HEART: Regular, soft holosystolic murmur. PMI is minimally displaced. There is no S3. LUNGS: Coarse at the base. ABDOMEN: Distended. Bowel sounds are present. GENITOURINARY: Grossly intact. EXTREMITIES: No clubbing, cyanosis or edema. LABORATORY DATA: White blood cell count is 6.4, hemoglobin went from 12.8 to 10.9, platelets 299. I NR is 1.0. Sodium 139, potassium 3.9. Her BUN is 9, creatinine 0.6. Troponin is negative at 0.012. ASSESSMENT AND PLAN: 1. Bradycardia. The patient's bradycardia appears to be of sinus bradycardia in nature. On present ation, her heart rate was 87 then she went down to 40, so it could be vagal reaction, should be some nonspecific ST-T changes. On presentation, she was in the 50s, now about 49. She is hemodynamically stable. For now, the patient will have a CT of the abdomen. We will follow her hemoglobin and tren d carefully and continue to investigate the potential cause of bradycardia including a vagal componen t from abdominal distention. 2. Anemia. Hemoglobin is trending down. Continue to adjust medications as needed. 3. History of endometrial cancer. Defer to primary team. 4. Chest pain. Troponins are negative. The patient did not rule in for acute ischemia. We will ob tain a 2D echo. I would like to thank Dr. Forrest for referring this patient for my evaluation. Dictated By: SULTANA TALBOT MD ML/NTS Conf#: [id number] DID#: [id number] CC: KRISTINE LANIER MD; DASHAWN FORREST MD;*End[facility]*
[2018-10-01] VITALS (11 sets, daily range): BP systolic 101–125; BP diastolic 53–70; PULSE 53–79; RESP 18–60
[2018-10-01] MEDS: CEFTRIAXONE 1 GM/50 ML (PMX) 50 ML IVPB SCH (00:56)
[2018-10-01] MEDS: SOD CHLORIDE 0.9% 1,000 ML IV SCH ×3 (02:25→22:25)
[2018-10-01] MEDS: morphine 2 MG INJ IV PRN ×2 (06:11→11:59)
[2018-10-01] MEDS: PANTOPRAZOLE 40 MG INJ IV SCH (06:11)
--- NOTE | 2018-10-01 12:21 | CONS ---
Assessment/Plan Assessment/Plan Hospital Course (Demo Recall) 1. Bradycardia- mainly to 50's and at times to 40's. Stable BP now was mild hypotension yesterday. Some mild dizziness. NL TSH 2. Dizzines/presyncope. -neg trop x 3 3. 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 Urinary tract infection. 5. History of rectal cancer status post reversal.-mild bowel thickening by CT 6. History of ventral hernia, status post incarceration. 7. Hypertension-was hotn yesterday but currently improved 8. Hyperlipidemia. Recc: -tele -serial ecg's -Will follow-up echo -check orthostatics -Follow rhythm closely. No indication for PPM at this time -Contineu abx's and f/u cx data Consultation Date/Type/Reason Admit Date/Time Sep 30, 2018 at 11:49 Initial Consult Date 09/30/18 Type of Consult Cardiology Reason for Consultation bradycardia Requesting Provider: KARYNA FRANZ MD Date/Time of Note DATE: 10/01/18 TIME: 12:15 Exam/Review of Systems Vital Signs Vitals Vital Signs Date Temp Pulse Resp B/P (MAP) Pulse Ox O2 O2 Flow FiO2 Time Delivery Rate 10/01/18 Room Air 12:13 10/01/18 98.4 54 48 119/56 99 11:16 (77) Intake and Output 09/30/18 09/30/18 10/01/18 1515:00 23:00 07:00 IntakeIntake Total 500 ml 800 ml 1550 ml BalanceBalance 500 ml 800 ml 1550 ml Exam Exam Review of Systems: CONSTITUTIONAL: No fevers, chills. PULMONARY: No sob CARDIOVASCULAR: No chest pain/palpitations GASTROINTESTINAL: No nausea/vomiting. GENITOURINARY: No hematuria/dysuria. MUSCULOSKELETAL: No myagias/arthalgias. PSYCHIATRIC: The patient denies depression. NEUROLOGIC: mild weakness, some dizziness Constitutional: alert Psych: no complaints Head: normocephalic ENMT: mucosa pink and moist Neck: supple, jvd (9 cm water) Respiratory: diminished breath sounds (at bases/B) Cardiovascular: other (bradycardic, regular rhythm) Gastrointestinal: soft, non-tender Musculoskeletal: muscle tone (normal) Extremities: edema (none) Labs Result Diagram: 10/01/18 0557 10/01/18 0557 Results 24hrs Laboratory Tests Test 09/30/18 16:15 10/01/18 05:57 Hemoglobin 10.3 L 10.4 L Hematocrit 33.9 L 34.5 L White Blood Count 6.7 Red Blood Count 3.74 L Mean Corpuscular Volume 92.2 Mean Corpuscular Hemoglobin 27.8 L Mean Corpuscular Hemoglobin Concent 30.1 L Red Cell Distribution Width 14.0 Platelet Count 278 Mean Platelet Volume 10.0 Immature Granulocytes % 0.400 Neutrophils % 68.9 Lymphocytes % 21.3 Monocytes % 6.9 Eosinophils % 1.9 Basophils % 0.6 Nucleated Red Blood Cells % 0.0 Immature Granulocytes # 0.030 Neutrophils # 4.6 Lymphocytes # 1.4 Monocytes # 0.5 Eosinophils # 0.1 Basophils # 0.0 Nucleated Red Blood Cells # 0.0 Sodium Level 141 Potassium Level 4.1 Chloride Level 109 Carbon Dioxide Level 26 Anion Gap 6 Blood Urea Nitrogen 8 Creatinine 0.63 Est Glomerular Filtrat Rate mL/min > 60 Glucose Level 101 Calcium Level 8.6 Phosphorus Level 3.8 Magnesium Level 2.1 Medications Medications Current Medications Morphine Sulfate (morphine) 2 mg Q6 PRN IV SEVERE PAIN LEVEL 7-10 Last administered on 10/01/18 11:59; Admin Dose 2 MG; Start 09/30/18 at 04:06 Acetaminophen (Tylenol Tab) 650 mg Q6H PRN PO MILD PAIN(1-3)OR ELEVATED TEMP Last administered on 09/30/18at 23:17; Admin Dose 650 MG; Start 09/30/18 at 04:10 Pantoprazole (Protonix Iv) 40 mg DAILY@06 IV Last administered on 10/01/18at 06:11; Admin Dose 40 MG; Start 09/30/18 at 06:00 Sodium Chloride 1,000 ml @ 100 mls/hr Q10H IV Last administered on 10/01/18 08:43; Admin Dose 100 MLS/HR; Start 09/30/18 at 04:30 Ceftriaxone Sodium 50 ml @ 100 mls/hr Q24H IVPB Last administered on 10/01/18at 00:56; Admin Dose 100 MLS/HR; Start 10/01/18 at 01:00 KRISTINE LANIER Oct 01, 2018 12:21
--- NOTE | 2018-10-01 13:20 | PN ---
Date/Time of Note Date/Time of Note DATE: 10/01/18 TIME: 13:17 Assessment/Plan VTE Prophylaxis Risk score (from Ns)>0 risk: 3 [place] [facility] [place] Yes Pharmacological prophylaxis: NA/contraindicated Pharm contraindication: low risk/ambulating Lines/Catheters IV Catheter Type (from [facility]): Peripheral IV Urinary Cath still in place: No Assessment/Plan Assessment/Plan AN: This is a 62-year-old female with: 1. Near syncope, could be secondary to urinary tract infection plus hypotension. Patient also was bradycardic. 2. Severe bradycardia. Patient is not on any beta bird. TSH within normal limit 3. A pelvic malignancy, questionable. Postmenopausal bleeding 4. Urinary tract infection. 5. History of rectal cancer stage III status post chemo/radiation status post reversal. 6. History of ventral hernia, status post incarceration. 7. Hypertension, now hypotensive. 8. Hyperlipidemia. PLAN -Hemoglobin stable - CT A+P The abdomen and pelvis reviewed. MEDICAL ATTENDANT Dr. Chamberlain called and called -cw with IV fluids - TSH wnl, HR 40-50, NO indication of pacemaker per cards -IV Rocephin urine culture positive for diphtheroids Pain control Result Diagram: 10/01/18 0557 10/01/18 0557 Results 24hrs Laboratory Tests Test 09/30/18 16:15 10/01/18 05:57 Hemoglobin 10.3 L 10.4 L Hematocrit 33.9 L 34.5 L White Blood Count 6.7 Red Blood Count 3.74 L Mean Corpuscular Volume 92.2 Mean Corpuscular Hemoglobin 27.8 L Mean Corpuscular Hemoglobin Concent 30.1 L Red Cell Distribution Width 14.0 Platelet Count 278 Mean Platelet Volume 10.0 Immature Granulocytes % 0.400 Neutrophils % 68.9 Lymphocytes % 21.3 Monocytes % 6.9 Eosinophils % 1.9 Basophils % 0.6 Nucleated Red Blood Cells % 0.0 Immature Granulocytes # 0.030 Neutrophils # 4.6 Lymphocytes # 1.4 Monocytes # 0.5 Eosinophils # 0.1 Basophils # 0.0 Nucleated Red Blood Cells # 0.0 Sodium Level 141 Potassium Level 4.1 Chloride Level 109 Carbon Dioxide Level 26 Anion Gap 6 Blood Urea Nitrogen 8 Creatinine 0.63 Est Glomerular Filtrat Rate mL/min > 60 Glucose Level 101 Calcium Level 8.6 Phosphorus Level 3.8 Magnesium Level 2.1 Subjective 24 Hr Interval Summary Free Text/Dictation Patient complaint of lower abdominal pain Vaginal bleeding used 3-4 pads a day Exam/Review of Systems Exam Vitals Vital Signs Date Temp Pulse Resp B/P (MAP) Pulse Ox O2 O2 Flow FiO2 Time Delivery Rate 10/01/18 Room Air 12:13 10/01/18 98.4 54 48 119/56 99 11:16 (77) Intake and Output 09/30/18 09/30/18 10/01/18 1515:00 23:00 07:00 IntakeIntake Total 500 ml 800 ml 1550 ml BalanceBalance 500 ml 800 ml 1550 ml Exam GENERAL: The patient is awake, alert, oriented, does not appear to be in any acute distress. HEENT: Pupils equal, round, reactive to light. Oral mucosa dry. NECK: Supple. HEART: Bradycardic. LUNGS: Clear to auscultate bilaterally. ABDOMEN: Some suprapubic tenderness present. EXTREMITIES: No clubbing, cyanosis, or edema. Results Results 24hrs Laboratory Tests Test 09/30/18 16:15 10/01/18 05:57 Hemoglobin 10.3 L 10.4 L Hematocrit 33.9 L 34.5 L White Blood Count 6.7 Red Blood Count 3.74 L Mean Corpuscular Volume 92.2 Mean Corpuscular Hemoglobin 27.8 L Mean Corpuscular Hemoglobin Concent 30.1 L Red Cell Distribution Width 14.0 Platelet Count 278 Mean Platelet Volume 10.0 Immature Granulocytes % 0.400 Neutrophils % 68.9 Lymphocytes % 21.3 Monocytes % 6.9 Eosinophils % 1.9 Basophils % 0.6 Nucleated Red Blood Cells % 0.0 Immature Granulocytes # 0.030 Neutrophils # 4.6 Lymphocytes # 1.4 Monocytes # 0.5 Eosinophils # 0.1 Basophils # 0.0 Nucleated Red Blood Cells # 0.0 Sodium Level 141 Potassium Level 4.1 Chloride Level 109 Carbon Dioxide Level 26 Anion Gap 6 Blood Urea Nitrogen 8 Creatinine 0.63 Est Glomerular Filtrat Rate mL/min > 60 Glucose Level 101 Calcium Level 8.6 Phosphorus Level 3.8 Magnesium Level 2.1 Medications Medication Current Medications Morphine Sulfate (morphine) 2 mg Q6 PRN IV SEVERE PAIN LEVEL 7-10 Last administered on 10/01/18at 11:59; Admin Dose 2 MG; Start 09/30/18 at 04:06 Acetaminophen (Tylenol Tab) 650 mg Q6H PRN PO MILD PAIN(1-3)OR ELEVATED TEMP Last administered on 09/30/18at 23:17; Admin Dose 650 MG; Start 09/30/18 at 04:10 Pantoprazole (Protonix Iv) 40 mg DAILY@06 IV Last administered on 10/01/18at 06:11; Admin Dose 40 MG; Start 09/30/18 at 06:00 Sodium Chloride 1,000 ml @ 100 mls/hr Q10H IV Last administered on 10/01/18at 08:43; Admin Dose 100 MLS/HR; Start 09/30/18 at 04:30 Ceftriaxone Sodium 50 ml @ 100 mls/hr Q24H IVPB Last administered on 10/01/18at 00:56; Admin Dose 100 MLS/HR; Start 10/01/18 at 01:00 KARYNA FRANZ MD Oct 01, 2018 13:20
[2018-10-01] MEDS ORDERED: KETOROLAC 15 MG INJ IV PRN (13:30)
[2018-10-01] MEDS: HYDROCODONE/APAP (5/325) TAB PO PRN (15:12)
[2018-10-01] MEDS: HYDROmorphONE 1 MG/ML SYG IV PRN (23:04)
--- NOTE | 2018-10-01 23:16 | RADRPT ---
Echocardiogram Report Patient Name: VERONA SOTELOPatient ID: [id number] : 1955 (62y 11m)Study Date: 09/30/2018 9:09:43 AM Gender: FAccession #: [id number] Tech: LE Location: Ref.Physician: PANDA FORREST Height(Cm): BSA: Weight(Kg): Quality: GoodAccount #: Procedures: Echocardiographic Report: Transthoracic echocardiogram with complete 2D, M-Mode, and doppler examination. Indications: Dizziness. Measurements: 2D/M Mode Doppler Measurement Value Normal Range Measurement Value Normal Range LVIDd 2D 3.9 [ 3.8 - 5.2 ] cm SHERIF VTI 2.0 [ 2.0 - 4.0 ] cm2 LVIDs 2D 2.7 [ 2.2 - 3.5 ] cm AV Mean Chidi 0.9 [ 70.0 - 90.0 ] cm/sec LVPWd 2D 1.0 [ 0.6 - 0.9 ] cm AV Mean PG 4.0 [ 2.0 - 4.0 ] mmHg IVSd 2D 1.0 [ 0.6 - 0.9 ] cm AV VTI 32.3 cm EDV 2D 67.1 [ 46.0 - 106.0 ] ml LVOT Mean Chidi 0.7 [ 60.0 - 80.0 ] cm/sec ESV 2D 28.0 [ 14.0 - 42.0 ] ml LVOT Mean PG 2.0 [ 1.0 - 3.0 ] mmHg EF 2D 58.3 [ 54.0 - 74.0 ] percent LVOT Peak Chidi 1.1 [ 70.0 - 110.0 ] cm/sec LVOT Diam 1.9 [ 2.1 - 2.5 ] cm LVOT Peak PG 5.0 [ 2.0 - 6.0 ] mmHg LVOT VTI 22.6 [ 20.0 - 30.0 ] cm MV E Peak Chidi 0.8 [ 60.0 - 130.0 ] cm/sec MV A Peak Chidi 0.7 [ 100.0 - 120.0 ] cm/sec MV E/A 1.2 [ 0.8 - 1.5 ] ratio MV Decel Time 246 [ 104 - 258 ] msec Lat E` Chidi 0.1 [ 10.0 - 15.0 ] cm/sec Lateral E/E` 8.7 [ 1.0 - 2.0 ] ratio Med E` Chidi 0.1 cm/sec MV E/A 1.2 [ 0.8 - 1.5 ] ratio TR Peak Chidi 2.6 [ 100.0 - 280.0 ] cm/sec TR Peak PG 27.0 mmHg PV Peak Chidi 0.8 [ 40.0 - 80.0 ] cm/sec PV Peak PG 2.0 mmHg Findings: Left Ventricle: Normal left ventricular systolic function. Normal left ventricular cavity size. Normal left ventricular wall thickness. Ejection fraction is visually estimated at 60 %. Tissue Doppler/Mitral Doppler indices are consistent with pseudonormalization with mildly elevated left atrial pressure (Stage II diastolic dysfunction). Right Ventricle: Normal right ventricular size. Normal right ventricular systolic function. Left Atrium: The left atrium is normal in size. Right Atrium: The right atrium is normal in size. Mitral Valve: Normal appearance of the mitral valve. Normal appearance and function of the mitral valve with trace regurgitation. Aortic Valve: Normal appearance of the aortic valve. No significant aortic stenosis or insufficiency. Tricuspid Valve: Normal appearance of the tricuspid valve. Right ventricular systolic pressure is consistent with mild pulmonary hypertension. Estimated peak PA systolic pressure 30 mmHg. There is mild tricuspid regurgitation. Pulmonic Valve: Normal pulmonic valve appearance. No evidence of pulmonic regurgitation. Pericardium: Normal pericardium with no significant pericardial effusion. Aorta: Normal aortic root. IVC: Normal size and normal respiratory collapse consistent with normal right atrial pressure. Conclusions: Normal left ventricular systolic function. Normal left ventricular cavity size. Normal left ventricular wall thickness. Ejection fraction is visually estimated at 60 %. Tissue Doppler/Mitral Doppler indices are consistent with pseudonormalization with mildly elevated left atrial pressure (Stage II diastolic dysfunction). Normal appearance of the mitral valve. Normal appearance and function of the mitral valve with trace regurgitation. Normal appearance of the tricuspid valve. Right ventricular systolic pressure is consistent with mild pulmonary hypertension. Estimated peak PA systolic pressure 30 mmHg. There is mild tricuspid regurgitation. Electronically Signed By: Danny Pires 2018-10-01 23:15:29 PDT
[2018-10-02] VITALS (11 sets, daily range): BP systolic 92–146; BP diastolic 50–64; PULSE 44–63; RESP 18
[2018-10-02] MEDS: CEFTRIAXONE 1 GM/50 ML (PMX) 50 ML IVPB SCH (00:26)
[2018-10-02] MEDS: PANTOPRAZOLE (EC) 40 MG TAB PO SCH (06:25)
[2018-10-02] MEDS: SOD CHLORIDE 0.9% 1,000 ML IV SCH ×2 (06:25→17:43)
[2018-10-02] MEDS: ONDANSETRON 4 MG INJ IV PRN (06:34)
--- NOTE | 2018-10-02 13:04 | CONS ---
Assessment/Plan Assessment/Plan Assessment/Plan (Daily) Postmenopausal bleeding suspected for endometrial carcinoma Patient's primary continuity coordinator is Dr. Campo Patient has an appointment with a gynecology oncologist in [place] Patient was extensively counseled that she should be seen by a gynecology oncologist as soon as possible and should be planned for surgery Patient further counseled without surgical intervention the cancer can spread further Patient fully understands and acknowledges the immediate need for an evaluation by gynecology oncologist She expresses that she will keep her appointment with her gynecology oncologist A automobile travel club counselor was used for this consultation and the urgency of this diagnosis was confirmed that it was understood by the patient Consultation Date/Type/Reason Admit Date/Time Sep 30, 2018 at 11:49 Date of Consultation: Oct 02, 2018 Type of Consult Gynecology Reason for Consultation Postmenopausal bleeding suspected for endometrial carcinoma Date/Time of Note DATE: 10/02/18 TIME: 12:59 Hx of Present Illness Patient is a 62-year-old postmenopausal with history of rectal carcinoma currently with a new found endometrial mass and postmenopausal bleeding highly suspected for endometrial carcinoma Pelvic ultrasound and CT scan were both done during this admission Patient reports that she is scheduled to be seen by a gynecology cardiac specialist as an outpatient and she intends to keep her appointment Constitutional: no complaints, improved Eyes: no complaints ENT: no complaints Respiratory: no complaints Cardiovascular: no complaints Gastrointestinal: no complaints Genitourinary: no complaints, bleeding Musculoskeletal: no complaints Skin: no complaints Neurologic: no complaints Endocrine: no complaints Lymphatic: no complaints Psychological: no complaints, nl mood/affect Immunologic: no complaints Past Medical History 1. History of rectal cancer, status post colostomy, now with colostomy reversal. 2. History of incarcerated ventral hernia status post surgery. 3. History of laparoscopic cholecystectomy. 4. Questionable new pelvic cancer. 5. Hypertension. 6. Hyperlipidemia. Medical History: cancer (History of rectal cancer) Home Meds Active Scripts Naproxen* (Naprosyn*) 500 Mg Tablet, 500 MG PO BID PRN for PAIN AND/OR INFLAMMATION, #30 TAB Prov:LISA VAUGHAN PA-C 02/09/17 Reported Medications Gabapentin* (Gabapentin*) Unknown Strength Capsule, PO BID, #60 CAP 09/30/18 Ibuprofen* (Ibuprofen*) 800 Mg Tab, 800 MG PO Q6H PRN for PAIN, TAB 09/30/18 Omeprazole* (Omeprazole*) 20 Mg Capsule.dr, 20 MG PO DAILY, #30 CAP 02/07/16 Losartan Potassium* (Losartan Potassium*) 50 Mg Tablet, 50 MG PO DAILY, TAB 02/07/16 Discontinued Reported Medications [Methocarbanol] No Conflict Check 10/24/17 [Gabapentin] No Conflict Check 10/24/17 [Prednisone] No Conflict Check 10/24/17 Calcium Carbonate/Vitamin D3 (Oyster Shell Calcium + D Cplt) 1 Each Tablet, 1 EACH PO, TAB 02/07/16 Simvastatin* (Simvastatin*) 80 Mg Tablet, 20 MG PO QHS, #30 TAB 02/07/16 Alendronate Sodium* (Alendronate Sodium*) 40 Mg Tablet, 70 MG PO DAILY, #30 TAB 02/07/16 Naproxen* (Naproxen*) 500 Mg Tablet, 500 MG PO BID PRN for INFLAMATION, TAB 10/13/14 Discontinued Scripts Tramadol HCl (Tramadol HCl) 50 Mg Tablet, 50 MG PO Q6 PRN for PAIN, #20 TAB Prov:KRISTY KOHLER PA-C 09/04/18 Albuterol Sulfate* (Ventolin HFA*) 18 Gm Hfa.aer.ad, 2 PUFF INHALATION Q4H, #1 INHALER Prov:JAMMIE VALLADARES 03/10/18 Prednisone* (Prednisone*) 20 Mg Tab, 40 MG PO DAILY for 4 Days, TAB Prov:JAMMIE VALLADARES 03/10/18 Azithromycin* (Zithromax*) 250 Mg Tablet, 250 MG PO .BONI DIRECTED, #6 TAB TAKE 500 MG (2 TABS) THE FIRST DAY THEN 250 MG (1 TAB) DAYS 2-5 Prov:JAMMIE VALLADARES 03/10/18 Benzonatate* (Tessalon Perle*) 100 Mg Capsule, 100 MG PO Q8H PRN for COUGH, #10 CAP Prov:JAMMIE VALLADARES 03/10/18 Promethazine HCl/Codeine (Prometh-Codein 6.25-10 mg/5 ml) 5 Ml Syrup, 5 ML PO QHS PRN for COUGH for 5 Days, #120 ML Prov:CHELSIE PEÑA MD 08/02/17 Amoxicillin* (Amoxicillin*) 500 Mg Cap, 500 MG PO TID for 7 Days, CAP Prov:CHELSIE PEÑA MD 08/02/17 Cephalexin* (Keflex*) 500 Mg Capsule, 500 MG PO QID for 7 Days, CAP Prov:LISA VAUGHAN PA-C 02/09/17 Tramadol HCl (Tramadol HCl) 50 Mg Tablet, 50 MG PO Q4 PRN for PAIN, #20 TAB Prov:LISA VAUGHAN PA-C 02/09/17 Acetaminophen* (Tylophen*) 500 Mg Capsule, 1 CAP PO Q6H PRN for PAIN AND OR ELEVATED TEMP, #20 CAP Prov:DANIKA [employer] 08/02/16 Ibuprofen* (Ibuprofen*) 600 Mg Tablet, 600 MG PO Q6H PRN for MILD PAIN LEVEL 1- 3, #30 TAB Prov:LISSY ESCOBAR NP 04/04/15 Medications Current Medications Acetaminophen (Tylenol Tab) 650 mg Q6H PRN PO MILD PAIN(1-3)OR ELEVATED TEMP Last administered on 09/30/18at 23:17; Admin Dose 650 MG; Start 09/30/18 at 04:10 Sodium Chloride 1,000 ml @ 100 mls/hr Q10H IV Last administered on 10/02/18at 06:25; Admin Dose 100 MLS/HR; Start 09/30/18 at 04:30 Ceftriaxone Sodium 50 ml @ 100 mls/hr Q24H IVPB Last administered on 10/02/18at 00:26; Admin Dose 100 MLS/HR; Start 10/01/18 at 01:00 Hydromorphone HCl (Dilaudid) 1 mg Q4H PRN IV SEVERE PAIN LEVEL 7-10 Last administered on 10/01/18at 23:04; Admin Dose 1 MG; Start 10/01/18 at 13:30 Acetaminophen/ Hydrocodone Bitart ([place] (5/325)) 1 tab Q4H PRN PO MODERATE PAIN LEVEL 4-6 Last administered on 10/01/18at 15:12; Admin Dose 1 TAB; Start 10/01/18 at 13:30 Ketorolac Tromethamine (Toradol) 15 mg Q6H PRN IV PAIN; Start 10/01/18 at 13:30; Stop 10/04/18 at 13:29 Pantoprazole (Protonix Tab) 40 mg DAILY@06 PO Last administered on 10/02/18at 06:25; Admin Dose 40 MG; Start 10/02/18 at 06:00 Ondansetron HCl (Zofran Inj) 4 mg Q4H PRN IV NAUSEA AND/OR VOMITING Last administered on 10/02/18at 06:34; Admin Dose 4 MG; Start 10/02/18 at 04:30 Allergies: Coded Allergies: No Known Allergy (Verified , 09/29/18) Past Surgical History Past Surgical Hx: cholecystectomy, other (1. History of rectal cancer, status post colostomy, now with colostomy reversal.) Social History Smoking Status: Never smoker Exam/Review of Systems Exam Vitals Vital Signs Date Temp Pulse Resp B/P (MAP) Pulse Ox O2 O2 Flow FiO2 Time Delivery Rate 10/02/18 98.2 63 18 92/50 (64) 97 11:27 10/01/18 Room Air 23:09 Intake and Output 10/01/18 10/01/18 10/02/18 1515:00 23:00 07:00 IntakeIntake Total 1900 ml 1500 ml BalanceBalance 1900 ml 1500 ml Constitutional: alert, oriented, well developed Genitourinary - Female: other (Vaginal spotting) Results Result Diagram: 10/02/18 0729 10/01/18 0557 Results 24hrs Laboratory Tests Test 10/02/18 07:29 White Blood Count 6.2 Red Blood Count 3.85 L Hemoglobin 10.7 L Hematocrit 35.1 L Mean Corpuscular Volume 91.2 Mean Corpuscular Hemoglobin 27.8 L Mean Corpuscular Hemoglobin Concent 30.5 L Red Cell Distribution Width 13.8 Platelet Count 307 Mean Platelet Volume 10.3 Immature Granulocytes % 0.500 H Neutrophils % 68.8 Lymphocytes % 23.0 Monocytes % 6.1 Eosinophils % 1.1 Basophils % 0.5 Nucleated Red Blood Cells % 0.0 Immature Granulocytes # 0.030 Neutrophils # 4.3 Lymphocytes # 1.4 Monocytes # 0.4 Eosinophils # 0.1 Basophils # 0.0 Nucleated Red Blood Cells # 0.0 Imaging Imaging PROCEDURE: CT Abdomen and Pelvis without intravenous contrast. CLINICAL INDICATION: ABDOMINAL PAIN, MULTIPLE SURGERIES, COLON CANCER . TECHNIQUE: CT scan of the abdomen and pelvis without intravenous contrast was performed on a multi-detector high-resolution CT scanner. Coronal and sagittal reformatted images were obtained from the axial source images. DICOM images are available. CTDIvol 10.9 mGy, and DLP 555.16 mGy.cm. One or more of the following dose reduction techniques were used: - Automated exposure control. - Adjustment of the mA and/or kV according to patient size. - Use of iterative reconstruction technique. COMPARISON: CT 02/09/2017 FINDINGS: In the absence of intravenous contrast, the study constitutes a limited assessment of the solid organs, bowel and vessels. Lower thorax: Mild subsegmental atelectasis or scarring of the bilateral lung bases. Liver: Normal. Biliary: Postsurgical changes of cholecystectomy. Stable mild prominence of the bile ducts, likely related to post-cholecystectomy state. Pancreas: Normal. Spleen: Normal. Adrenal Glands: Normal. Urinary: Normal. Gastrointestinal: Stomach and small bowel are unremarkable. Appendix is identified and appears unremarkable. There is mild bowel wall thickening with submucosal fat density and adjacent stranding of the ascending colon. Divert icula are seen throughout the colon. Post surgical anastomoses at the sigmoid colon. Lymph nodes: New enlarged distal aortocaval lymph node measuring 15 mm. Enlarged left common iliac node measuring 11 mm. Enlarged right external iliac node measuring 15 mm. Vascular: There are trace atherosclerotic calcifications of the aorta, without evidence of aneurysm. Peritoneum/mesentery: No free fluid or free air. Reproductive organs: New enlargement of the uterus 12.2 x 5.2 x 6.7 cm. Musculoskeletal: Mild degenerative changes of the spine. IMPRESSION: 1. Mild bowel wall thickening with submucosal fat density and adjacent stranding of the ascending colon, may represent acute on chronic inflammatory changes. 2. Interval enlargement of the uterus compared to prior exam. Findings may re present a uterine or endometrial mass. Recommend further evaluation with pelvic ultrasound. 3. New enlarged aortocaval lymph node, left common iliac node, and right external iliac node. Findings concerning for neoplastic versus reactive lymphadenopathy. 4. Redemonstrated postsurgical anastomoses of the sigmoid colon. RPTAT: AA Physician German Date Time Electronically viewed and signed by [place] Physician on 09/30/2018 14:39 HtN/ CC: KARYNA FRANZ MD [id number] PROCEDURE: US Pelvis. CLINICAL INDICATION: blood clots, pain TECHNIQUE: Multiple sonographic images of the pelvis were obtained utilizing a transabdominal technique. No silver service waiter available, so endovaginal imaging was not performed. The images were reviewed on a PACS workstation. COMPARISON: 09/04/2018 FINDINGS: Transabdominal imaging is limited by an empty bladder. Heterogeneous uterus is again noted with multiple scattered hyperechoic foci, which appear grossly unchanged compared to prior study 09/04/2018. Endometrial stripe is not visualized. No free fluid is seen. The ovaries are not visualized. No adnexal mass identified. IMPRESSION: Limited study. Grossly stable hyperechoic foci within the uterus. No acute findings. Ovaries are not visualized. RPTAT:HCLE peace Delacruz Physician Date Time Electronically viewed and signed by Physician Cesario on 09/29/2018 22:32 cE/ CC: JAMMIE VALLADARES [id number] Medications Medication Current Medications Acetaminophen (Tylenol Tab) 650 mg Q6H PRN PO MILD PAIN(1-3)OR ELEVATED TEMP Last administered on 09/30/18at 23:17; Admin Dose 650 MG; Start 09/30/18 at 04:10 Sodium Chloride 1,000 ml @ 100 mls/hr Q10H IV Last administered on 10/02/18at 06:25; Admin Dose 100 MLS/HR; Start 09/30/18 at 04:30 Ceftriaxone Sodium 50 ml @ 100 mls/hr Q24H IVPB Last administered on 10/02/18at 00:26; Admin Dose 100 MLS/HR; Start 10/01/18 at 01:00 Hydromorphone HCl (Dilaudid) 1 mg Q4H PRN IV SEVERE PAIN LEVEL 7-10 Last administered on 10/01/18at 23:04; Admin Dose 1 MG; Start 10/01/18 at 13:30 Acetaminophen/ Hydrocodone Bitart ([place] (5/325)) 1 tab Q4H PRN PO MODERATE PAIN LEVEL 4-6 Last administered on 10/01/18at 15:12; Admin Dose 1 TAB; Start 10/01/18 at 13:30 Ketorolac Tromethamine (Toradol) 15 mg Q6H PRN IV PAIN; Start 10/01/18 at 13:30; Stop 10/04/18 at 13:29 Pantoprazole (Protonix Tab) 40 mg DAILY@06 PO Last administered on 10/02/18at 06:25; Admin Dose 40 MG; Start 10/02/18 at 06:00 Ondansetron HCl (Zofran Inj) 4 mg Q4H PRN IV NAUSEA AND/OR VOMITING Last administered on 10/02/18at 06:34; Admin Dose 4 MG; Start 10/02/18 at 04:30 BRITTANY SAVAGE MD Oct 02, 2018 13:04
[2018-10-02] MEDS: HYDROCODONE/APAP (5/325) TAB PO PRN (13:36)
--- NOTE | 2018-10-02 13:54 | CONS ---
Assessment/Plan Assessment/Plan Hospital Course (Demo Recall) 1. Bradycardia- mainly to 50's and at times to 40's. Stable BP now was mild hypotension yesterday. Some mild dizziness. NL TSH 2. Dizzines/presyncope. -neg trop x 3 3. 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 Urinary tract infection. 5. History of rectal cancer status post reversal.-mild bowel thickening by CT 6. History of ventral hernia, status post incarceration. 7. Hypertension-was hotn yesterday but currently improved 8. Hyperlipidemia. Recc: -tele -serial ecg's -Follow rhythm closely. No indication for PPM at this time -Contineu abx's and f/u cx data -Ongoing Pain Medicine Physician eval Consultation Date/Type/Reason Admit Date/Time Sep 30, 2018 at 11:49 Initial Consult Date 09/30/18 Type of Consult Cardiology Reason for Consultation Bradycardia Requesting Provider: KARYNA FRANZ MD Date/Time of Note DATE: 10/02/18 TIME: 13:52 Exam/Review of Systems Vital Signs Vitals Vital Signs Date Temp Pulse Resp B/P (MAP) Pulse Ox O2 O2 Flow FiO2 Time Delivery Rate 10/02/18 54 13:46 10/02/18 98.2 18 92/50 (64) 97 11:27 10/01/18 Room Air 23:09 Intake and Output 10/01/18 10/01/18 10/02/18 1515:00 23:00 07:00 IntakeIntake Total 1900 ml 1500 ml BalanceBalance 1900 ml 1500 ml Exam Exam Review of Systems: CONSTITUTIONAL: No fevers, chills. PULMONARY: No sob CARDIOVASCULAR: No chest pain/palpitations GASTROINTESTINAL: No nausea/vomiting. GENITOURINARY: No hematuria/dysuria. MUSCULOSKELETAL: No myagias/arthalgias. PSYCHIATRIC: The patient denies depression. NEUROLOGIC: No weakness Constitutional: alert Psych: no complaints Head: normocephalic ENMT: mucosa pink and moist Neck: supple, jvd (9 cm water) Respiratory: clear to auscultation Cardiovascular: regular rate and rhythm Gastrointestinal: soft, non-tender Musculoskeletal: muscle tone (normal) Extremities: edema (none) Neurological: other (No focal deficits) Labs Result Diagram: 10/02/18 0729 10/01/18 0557 Results 24hrs Laboratory Tests Test 10/02/18 07:29 White Blood Count 6.2 Red Blood Count 3.85 L Hemoglobin 10.7 L Hematocrit 35.1 L Mean Corpuscular Volume 91.2 Mean Corpuscular Hemoglobin 27.8 L Mean Corpuscular Hemoglobin Concent 30.5 L Red Cell Distribution Width 13.8 Platelet Count 307 Mean Platelet Volume 10.3 Immature Granulocytes % 0.500 H Neutrophils % 68.8 Lymphocytes % 23.0 Monocytes % 6.1 Eosinophils % 1.1 Basophils % 0.5 Nucleated Red Blood Cells % 0.0 Immature Granulocytes # 0.030 Neutrophils # 4.3 Lymphocytes # 1.4 Monocytes # 0.4 Eosinophils # 0.1 Basophils # 0.0 Nucleated Red Blood Cells # 0.0 Medications Medications Current Medications Acetaminophen (Tylenol Tab) 650 mg Q6H PRN PO MILD PAIN(1-3)OR ELEVATED TEMP Last administered on 09/30/18 23:17; Admin Dose 650 MG; Start 09/30/18 at 04:10 Sodium Chloride 1,000 ml @ 100 mls/hr Q10H IV Last administered on 10/02/18 06:25; Admin Dose 100 MLS/HR; Start 09/30/18 at 04:30 Ceftriaxone Sodium 50 ml @ 100 mls/hr Q24H IVPB Last administered on 10/02/18 00:26; Admin Dose 100 MLS/HR; Start 10/01/18 at 01:00 Hydromorphone HCl (Dilaudid) 1 mg Q4H PRN IV SEVERE PAIN LEVEL 7-10 Last administered on 10/01/18at 23:04; Admin Dose 1 MG; Start 10/01/18 at 13:30 Acetaminophen/ Hydrocodone Bitart ([place] (5/325)) 1 tab Q4H PRN PO MODERATE PAIN LEVEL 4-6 Last administered on 10/02/18at 13:36; Admin Dose 1 TAB; Start 10/01/18 at 13:30 Ketorolac Tromethamine (Toradol) 15 mg Q6H PRN IV PAIN; Start 10/01/18 at 13:3 0; Stop 10/04/18 at 13:29 Pantoprazole (Protonix Tab) 40 mg DAILY@06 PO Last administered on 10/02/18at 06:25; Admin Dose 40 MG; Start 10/02/18 at 06:00 Ondansetron HCl (Zofran Inj) 4 mg Q4H PRN IV NAUSEA AND/OR VOMITING Last administered on 10/02/18at 06:34; Admin Dose 4 MG; Start 10/02/18 at 04:30 KRISTINE LANIER Oct 02, 2018 13:54
--- NOTE | 2018-10-02 13:58 | PN ---
Date/Time of Note Date/Time of Note DATE: 10/02/18 TIME: 13:54 Assessment/Plan VTE Prophylaxis Risk score (from [facility] [place]0 risk: 2 SCD applied (from [facility] [place]): Yes Pharmacological prophylaxis: NA/contraindicated Pharm contraindication: low risk/ambulating Lines/Catheters IV Catheter Type (from [facility]): Peripheral IV Urinary Cath still in place: No Assessment/Plan Hospital Course Assessment/Plan: This is a 62-year-old female with: 1. Near syncope, could be secondary to urinary tract infection plus hypotension. Patient also was bradycardic. Heart rate is up to 40s 2. Severe bradycardia. Patient is not on any beta bird. TSH within normal limit 3. A pelvic malignancy, questionable. Postmenopausal bleeding 4. Urinary tract infection. Urine culture positive for diphtheroids stiff to cephalosporins 5. History of rectal cancer stage III status post chemo/radiation status post reversal. 6. History of ventral hernia, status post incarceration. 7. Hypertension, now hypotensive. 8. Hyperlipidemia. PLAN -Hemoglobin stable -Pe QUARRYING MANAGER evaluation call Marquise Flores called -NS bolus patient was slightly hypotensive -CT of the head since patient has headache dizziness which could also be explained by bradycardia however patient has history of colon cancer before and now questionable pelvic cancer -cw with IV fluids - TSH wnl, HR 40-50, NO indication of pacemaker per cards -IV Protonix Result Diagram: 10/02/18 0729 10/01/18 0557 Results 24hrs Laboratory Tests Test 10/02/18 07:29 White Blood Count 6.2 Red Blood Count 3.85 L Hemoglobin 10.7 L Hematocrit 35.1 L Mean Corpuscular Volume 91.2 Mean Corpuscular Hemoglobin 27.8 L Mean Corpuscular Hemoglobin Concent 30.5 L Red Cell Distribution Width 13.8 Platelet Count 307 Mean Platelet Volume 10.3 Immature Granulocytes % 0.500 H Neutrophils % 68.8 Lymphocytes % 23.0 Monocytes % 6.1 Eosinophils % 1.1 Basophils % 0.5 Nucleated Red Blood Cells % 0.0 Immature Granulocytes # 0.030 Neutrophils # 4.3 Lymphocytes # 1.4 Monocytes # 0.4 Eosinophils # 0.1 Basophils # 0.0 Nucleated Red Blood Cells # 0.0 Subjective 24 Hr Interval Summary Free Text/Dictation Still feels dizzy and has lower abdominal pain Episode of vomiting this morning with Dilaudid Exam/Review of Systems Exam Vitals Vital Signs Date Temp Pulse Resp B/P (MAP) Pulse Ox O2 O2 Flow FiO2 Time Delivery Rate 10/02/18 54 13:46 10/02/18 98.2 18 92/50 (64) 97 11:27 10/01/18 Room Air 23:09 Intake and Output 10/01/18 10/01/18 10/02/18 1515:00 23:00 07:00 IntakeIntake Total 1900 ml 1500 ml BalanceBalance 1900 ml 1500 ml Exam GENERAL: The patient is awake, alert, oriented, does not appear to be in any acute distress. HEENT: Pupils equal, round, reactive to light. Oral mucosa dry. NECK: Supple. HEART: Bradycardic. LUNGS: Clear to auscultate bilaterally. ABDOMEN: Some suprapubic tenderness present. Results Results 24hrs Laboratory Tests Test 10/02/18 07:29 White Blood Count 6.2 Red Blood Count 3.85 L Hemoglobin 10.7 L Hematocrit 35.1 L Mean Corpuscular Volume 91.2 Mean Corpuscular Hemoglobin 27.8 L Mean Corpuscular Hemoglobin Concent 30.5 L Red Cell Distribution Width 13.8 Platelet Count 307 Mean Platelet Volume 10.3 Immature Granulocytes % 0.500 H Neutrophils % 68.8 Lymphocytes % 23.0 Monocytes % 6.1 Eosinophils % 1.1 Basophils % 0.5 Nucleated Red Blood Cells % 0.0 Immature Granulocytes # 0.030 Neutrophils # 4.3 Lymphocytes # 1.4 Monocytes # 0.4 Eosinophils # 0.1 Basophils # 0.0 Nucleated Red Blood Cells # 0.0 Medications Medication Current Medications Acetaminophen (Tylenol Tab) 650 mg Q6H PRN PO MILD PAIN(1-3)OR ELEVATED TEMP Last administered on 09/30/18at 23:17; Admin Dose 650 MG; Start 09/30/18 at 04:10 Sodium Chloride 1,000 ml @ 100 mls/hr Q10H IV Last administered on 10/02/18at 06:25; Admin Dose 100 MLS/HR; Start 09/30/18 at 04:30 Ceftriaxone Sodium 50 ml @ 100 mls/hr Q24H IVPB Last administered on 10/02/18at 00:26; Admin Dose 100 MLS/HR; Start 10/01/18 at 01:00 Hydromorphone HCl (Dilaudid) 1 mg Q4H PRN IV SEVERE PAIN LEVEL 7-10 Last administered on 10/01/18at 23:04; Admin Dose 1 MG; Start 10/01/18 at 13:30 Acetaminophen/ Hydrocodone Bitart ([place] (5/325)) 1 tab Q4H PRN PO MODERATE PAIN LEVEL 4-6 Last administered on 10/02/18at 13:36; Admin Dose 1 TAB; Start 10/01/18 at 13:30 Ketorolac Tromethamine (Toradol) 15 mg Q6H PRN IV PAIN; Start 10/01/18 at 13:30; Stop 10/04/18 at 13:29 Pantoprazole (Protonix Tab) 40 mg DAILY@06 PO Last administered on 10/02/18at 06:25; Admin Dose 40 MG; Start 10/02/18 at 06:00 Ondansetron HCl (Zofran Inj) 4 mg Q4H PRN IV NAUSEA AND/OR VOMITING Last administered on 10/02/18at 06:34; Admin Dose 4 MG; Start 10/02/18 at 04:30 Pantoprazole (Protonix Iv) 40 mg DAILY@06 IV ; Start 10/03/18 at 06:00; Status UNKARYNA RYAN MD Oct 02, 2018 13:58
[2018-10-02] MEDS ORDERED: SOD CHLORIDE 0.9% 500 ML IV ONE (14:00)
[2018-10-02] MEDS: FAMOTIDINE 20 MG INJ IV SCH ×2 (14:22→21:47)
[2018-10-03] VITALS (12 sets, daily range): BP systolic 104–135; BP diastolic 60–72; PULSE 50–69; RESP 18–20
[2018-10-03] MEDS: CEFTRIAXONE 1 GM/50 ML (PMX) 50 ML IVPB SCH (00:14)
[2018-10-03] MEDS: HYDROmorphONE 1 MG/ML SYG IV PRN ×3 (00:20→19:27)
[2018-10-03] MEDS: SOD CHLORIDE 0.9% 1,000 ML IV SCH ×2 (03:30→15:25)
[2018-10-03] MEDS: ACETAMINOPHEN 325 MG TAB PO PRN (03:51)
[2018-10-03] MEDS: PANTOPRAZOLE (EC) 40 MG TAB PO SCH (05:16)
[2018-10-03] MEDS: FAMOTIDINE 20 MG INJ IV SCH ×2 (09:21→19:27)
--- NOTE | 2018-10-03 15:22 | PN ---
Date/Time of Note Date/Time of Note DATE: 10/03/18 TIME: 15:19 Assessment/Plan VTE Prophylaxis Risk score (from [facility] [place])>0 risk: 3 SCD applied (from [facility] [place]): Yes Pharmacological prophylaxis: NA/contraindicated Pharm contraindication: low risk/ambulating Lines/Catheters IV [facility]ter Type (from [facility]): Peripheral IV Urinary Cath still in place: No Assessment/Plan Hospital Course Assessment/Plan: This is a 62-year-old female with: 1. Near syncope, could be secondary to urinary tract infection plus hypotension. Patient also was bradycardic. Heart rate is up to 40s. Much improved now 2. Severe bradycardia. Patient is not on any beta bird. TSH within normal limit, indication of pacemaker per cardiology 3. A pelvic malignancy, questionable. Postmenopausal bleeding 4. Urinary tract infection. Urine culture positive for diphtheroids sensitive to cephalosporins 5. History of rectal cancer stage III status post chemo/radiation status post reversal. 6. History of ventral hernia, status post incarceration. 7. Hypertension, now hypotensive. 8. Hyperlipidemia. PLAN -Hemoglobin stable -Gynecology consultation called with Dr. Flores who will see the patient tomorrow - Ct head neg - cw NS - TSH wnl, HR 40-50, NO indication of pacemaker per cards -IV Protonix - Ambulate Result Diagram: 10/02/18 0729 10/01/18 0557 Subjective 24 Hr Interval Summary Free Text/Dictation Slightly better today Abdominal pain is improved h Rate is improving Exam/Review of Systems Exam Vitals Vital Signs Date Temp Pulse Resp B/P (MAP) Pulse Ox O2 O2 Flow FiO2 Time Delivery Rate 10/03/18 50 13:12 10/03/18 98.7 19 115/60 96 11:34 (78) 10/01/18 Room Air 23:09 Intake and Output 10/02/18 10/02/18 10/03/18 1515:00 23:00 07:00 IntakeIntake Total 700 ml 1470 ml 1350 ml BalanceBalance 700 ml 1470 ml 1350 ml Exam ENERAL: The patient is awake, alert, oriented, does not appear to be in any acute distress. HEENT: Pupils equal, round, reactive to light. Oral mucosa dry. NECK: Supple. HEART: Bradycardic. LUNGS: Clear to auscultate bilaterally. ABDOMEN: Some suprapubic tenderness present. EXTREMITIES: No clubbing, cyanosis, or edema. Medications Medication Current Medications Acetaminophen (Tylenol Tab) 650 mg Q6H PRN PO MILD PAIN(1-3)OR ELEVATED TEMP Last administered on 10/03/18 03:51; Admin Dose 650 MG; Start 09/30/18 at 04:10 Sodium Chloride 1,000 ml @ 100 mls/hr Q10H IV Last administered on 10/03/18 03:30; Admin Dose 100 MLS/HR; Start 09/30/18 at 04:30 Ceftriaxone Sodium 50 ml @ 100 mls/hr Q24H IVPB Last administered on 10/03/18 00:14; Admin Dose 100 MLS/HR; Start 10/01/18 at 01:00 Hydromorphone HCl (Dilaudid) 1 mg Q4H PRN IV SEVERE PAIN LEVEL 7-10 Last administered on 10/03/18 00:20; Admin Dose 1 MG; Start 10/01/18 at 13:30 Acetaminophen/ Hydrocodone Bitart ([place] (5/325)) 1 tab Q4H PRN PO MODERATE PAIN LEVEL 4-6 Last administered on 10/02/18 13:36; Admin Dose 1 TAB; Start 10/01/18 at 13:30 Ketorolac Tromethamine (Toradol) 15 mg Q6H PRN IV PAIN; Start 10/01/18 at 13:30; Stop 10/04/18 at 13:29 Pantoprazole (Protonix Tab) 40 mg DAILY@06 PO Last administered on 10/03/18 05:16; Admin Dose 40 MG; Start 10/02/18 at 06:00 Ondansetron HCl (Zofran Inj) 4 mg Q4H PRN IV NAUSEA AND/OR VOMITING Last administered on 10/02/18 06:34; Admin Dose 4 MG; Start 10/02/18 at 04:30 Famotidine (Pepcid Iv) 20 mg BID IV Last administered on 10/03/18 09:21; Admin Dose 20 MG; Start 10/02/18 at 14:00 KARYNA FRANZ MD Oct 03, 2018 15:22
--- NOTE | 2018-10-03 17:53 | CONS ---
Assessment/Plan Assessment/Plan Hospital Course (Demo Recall) 1. Bradycardia- mainly to 50's and at times to 40's. Stable BP now was mild hypotension yesterday. Some mild dizziness. NL TSH 2. Dizzines/presyncope. -neg trop x 3 3. 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 Urinary tract infection. 5. History of rectal cancer status post reversal.-mild bowel thickening by CT 6. History of ventral hernia, status post incarceration. 7. Hypertension-was hotn yesterday but currently improved 8. Hyperlipidemia. Recc: -tele -serial ecg's -Follow rhythm closely. No indication for PPM at this time -Contineu abx's and f/u cx data -Ongoing [employer]ician eval Consultation Date/Type/Reason Admit Date/Time Sep 30, 2018 at 11:49 Initial Consult Date 09/30/18 Type of Consult Cardiology Reason for Consultation Bradycardia Requesting Provider: KARYNA FRANZ MD Date/Time of Note DATE: 10/03/18 TIME: 17:49 Exam/Review of Systems Vital Signs Vitals Vital Signs Date Temp Pulse Resp B/P (MAP) Pulse Ox O2 O2 Flow FiO2 Time Delivery Rate 10/03/18 61 16:38 10/03/18 97.7 18 128/72 94 16:00 (90) 10/01/18 Room Air 23:09 Intake and Output 10/02/18 10/02/18 10/03/18 1515:00 23:00 07:00 IntakeIntake Total 700 ml 1470 ml 1350 ml BalanceBalance 700 ml 1470 ml 1350 ml Exam Exam Review of Systems: CONSTITUTIONAL: No fevers, chills. PULMONARY: No sob CARDIOVASCULAR: No chest pain/palpitations GASTROINTESTINAL: No nausea/vomiting. GENITOURINARY: No hematuria/dysuria. MUSCULOSKELETAL: No myagias/arthalgias. PSYCHIATRIC: The patient denies depression. NEUROLOGIC: c/o dizziness and GRAY Constitutional: alert, oriented Psych: no complaints Head: normocephalic ENMT: mucosa pink and moist Neck: supple, jvd (9 cm water) Respiratory: diminished breath sounds Cardiovascular: regular rate and rhythm Gastrointestinal: soft, non-tender Musculoskeletal: muscle tone (normql) Extremities: edema Neurological: other (No focal deficits) Labs Result Diagram: 10/02/18 0729 10/01/18 0557 Medications Medications Current Medications Acetaminophen (Tylenol Tab) 650 mg Q6H PRN PO MILD PAIN(1-3)OR ELEVATED TEMP Last administered on 10/03/18 03:51; Admin Dose 650 MG; Start 09/30/18 at 04:10 Sodium Chloride 1,000 ml @ 100 mls/hr Q10H IV Last administered on 10/03/18 15:25; Admin Dose 100 MLS/HR; Start 09/30/18 at 04:30 Ceftriaxone Sodium 50 ml @ 100 mls/hr Q24H IVPB Last administered on 10/03/18 00:14; Admin Dose 100 MLS/HR; Start 10/01/18 at 01:00 Hydromorphone HCl (Dilaudid) 1 mg Q4H PRN IV SEVERE PAIN LEVEL 7-10 Last administered on 10/03/18 15:22; Admin Dose 1 MG; Start 10/01/18 at 13:30 Acetaminophen/ Hydrocodone Bitart ([place] (5/325)) 1 tab Q4H PRN PO MODERATE PAIN LEVEL 4-6 Last administered on 10/02/18 13:36; Admin Dose 1 TAB; Start 10/01/18 at 13:30 Ketorolac Tromethamine (Toradol) 15 mg Q6H PRN IV PAIN; Start 10/01/18 at 13:30; Stop 10/04/18 at 13:29 Pantoprazole (Protonix Tab) 40 mg DAILY@06 PO Last administered on 10/03/18 05:16; Admin Dose 40 MG; Start 10/02/18 at 06:00 Ondansetron HCl (Zofran Inj) 4 mg Q4H PRN IV NAUSEA AND/OR VOMITING Last administered on 10/02/18 06:34; Admin Dose 4 MG; Start 10/02/18 at 04:30 Famotidine (Pepcid Iv) 20 mg BID IV Last administered on 10/03/18 09:21; Admin Dose 20 MG; Start 10/02/18 at 14:00 KRISTINE LANIER Oct 03, 2018 17:53
[2018-10-03] MEDS: ONDANSETRON 4 MG INJ IV PRN (20:39)
[2018-10-04] VITALS (12 sets, daily range): BP systolic 107–131; BP diastolic 56–68; PULSE 44–66; RESP 18–20
[2018-10-04] MEDS: CEFTRIAXONE 1 GM/50 ML (PMX) 50 ML IVPB SCH (00:12)
[2018-10-04] MEDS: SOD CHLORIDE 0.9% 1,000 ML IV SCH ×2 (00:12→10:25)
[2018-10-04] MEDS: ACETAMINOPHEN 325 MG TAB PO PRN (00:18)
[2018-10-04] MEDS: HYDROmorphONE 1 MG/ML SYG IV PRN ×4 (02:10→20:57)
[2018-10-04] MEDS ORDERED: BARIUM SULF 2% 450 ML BTL (BERRY SMOOTHIE) PO ONE (03:00)
[2018-10-04] MEDS: PANTOPRAZOLE (EC) 40 MG TAB PO SCH (05:53)
[2018-10-04] MEDS: FAMOTIDINE 20 MG INJ IV SCH ×2 (08:24→20:56)
[2018-10-04] MEDS ORDERED: SOD CHLORIDE 0.9% 100 ML ONE (08:45)
[2018-10-04] MEDS ORDERED: IOHEXOL 300MG/ML 150 ML BTL ONE (08:45)
--- NOTE | 2018-10-04 16:17 | CONS ---
Assessment/Plan Assessment/Plan Assessment/Plan (Daily) Bradycardia Dizziness Urinary tract infection. History of rectal cancer History of ventral hernia, status post incarceration. Hypertension Hyperlipidemia. Avoid AV Warner Blockers Continue Antibiotics Consultation Date/Type/Reason Admit Date/Time Sep 30, 2018 at 11:49 Type of Consult Cardiology Date/Time of Note DATE: 10/04/18 TIME: 16:15 Past Medical History Home Meds Active Scripts Naproxen* (Naprosyn*) 500 Mg Tablet, 500 MG PO BID PRN for PAIN AND/OR INFLAMMATION, #30 TAB Prov:LISA VAUGHAN PA-C 02/09/17 Reported Medications Gabapentin* (Gabapentin*) Unknown Strength Capsule, PO BID, #60 CAP 09/30/18 Ibuprofen* (Ibuprofen*) 800 Mg Tab, 800 MG PO Q6H PRN for PAIN, TAB 09/30/18 Omeprazole* (Omeprazole*) 20 Mg Capsule.dr, 20 MG PO DAILY, #30 CAP 02/07/16 Losartan Potassium* (Losartan Potassium*) 50 Mg Tablet, 50 MG PO DAILY, TAB 02/07/16 Discontinued Reported Medications [Methocarbanol] No Conflict Check 10/24/17 [Gabapentin] No Conflict Check 10/24/17 [Prednisone] No Conflict Check 10/24/17 Calcium Carbonate/Vitamin D3 (Oyster Shell Calcium + D Cplt) 1 Each Tablet, 1 EACH PO, TAB 02/07/16 Simvastatin* (Simvastatin*) 80 Mg Tablet, 20 MG PO QHS, #30 TAB 02/07/16 Alendronate Sodium* (Alendronate Sodium*) 40 Mg Tablet, 70 MG PO DAILY, #30 TAB 02/07/16 Naproxen* (Naproxen*) 500 Mg Tablet, 500 MG PO BID PRN for INFLAMATION, TAB 10/13/14 Discontinued Scripts Tramadol HCl (Tramadol HCl) 50 Mg Tablet, 50 MG PO Q6 PRN for PAIN, #20 TAB Prov:KRISTY KOHLER PA-C 09/04/18 Albuterol Sulfate* (Ventolin HFA*) 18 Gm Hfa.aer.ad, 2 PUFF INHALATION Q4H, #1 INHALER Prov:JAMMIE VALLADARES 03/10/18 Prednisone* (Prednisone*) 20 Mg Tab, 40 MG PO DAILY for 4 Days, TAB Prov:JAMMIE VALLADARES 03/10/18 Azithromycin* (Zithromax*) 250 Mg Tablet, 250 MG PO .BONI DIRECTED, #6 TAB TAKE 500 MG (2 TABS) THE FIRST DAY THEN 250 MG (1 TAB) DAYS 2-5 Prov:JAMMIE VALLADARES Faith 03/10/18 Benzonatate* (Tessalon Perle*) 100 Mg Capsule, 100 MG PO Q8H PRN for COUGH, #10 CAP Prov:JAMMIE VALLADARES Tariq. 03/10/18 Promethazine HCl/Codeine (Prometh-Codein 6.25-10 mg/5 ml) 5 Ml Syrup, 5 ML PO QHS PRN for COUGH for 5 Days, #120 ML Prov:CHELSIE PEÑA MD 08/02/17 Amoxicillin* (Amoxicillin*) 500 Mg Cap, 500 MG PO TID for 7 Days, CAP Prov:CHELSIE PEÑA MD 08/02/17 Cephalexin* (Keflex*) 500 Mg Capsule, 500 MG PO QID for 7 Days, CAP Prov:LISA VAUGHAN PA-C 02/09/17 Tramadol HCl (Tramadol HCl) 50 Mg Tablet, 50 MG PO Q4 PRN for PAIN, #20 TAB Prov:LISA VAUGHAN PA-C 02/09/17 Acetaminophen* (Tylophen*) 500 Mg Capsule, 1 CAP PO Q6H PRN for PAIN AND OR ELEVATED TEMP, #20 CAP Prov:DANIKA BLACK NP 08/02/16 Ibuprofen* (Ibuprofen*) 600 Mg Tablet, 600 MG PO Q6H PRN for MILD PAIN LEVEL 1- 3, #30 TAB Prov:LISSY ESCOBAR NP 04/04/15 Medications Current Medications Acetaminophen (Tylenol Tab) 650 mg Q6H PRN PO MILD PAIN(1-3)OR ELEVATED TEMP Last administered on 10/04/18at 00:18; Admin Dose 650 MG; Start 09/30/18 at 04:10 Sodium Chloride 1,000 ml @ 100 mls/hr Q10H IV Last administered on 10/04/18at 10:25; Admin Dose 100 MLS/HR; Start 09/30/18 at 04:30 Ceftriaxone Sodium 50 ml @ 100 mls/hr Q24H IVPB Last administered on 10/04/18 00:12; Admin Dose 100 MLS/HR; Start 10/01/18 at 01:00 Hydromorphone HCl (Dilaudid) 1 mg Q4H PRN IV SEVERE PAIN LEVEL 7-10 Last administered on 10/04/18 13:13; Admin Dose 1 MG; Start 10/01/18 at 13:30 Acetaminophen/ Hydrocodone Bitart ([place] (5/325)) 1 tab Q4H PRN PO MODERATE PAIN LEVEL 4-6 Last administered on 10/02/18 13:36; Admin Dose 1 TAB; Start 10/01/18 at 13:30 Pantoprazole (Protonix Tab) 40 mg DAILY@06 PO Last administered on 10/04/18 05:53; Admin Dose 40 MG; Start 10/02/18 at 06:00 Ondansetron HCl (Zofran Inj) 4 mg Q4H PRN IV NAUSEA AND/OR VOMITING Last administered on 10/03/18 20:39; Admin Dose 4 MG; Start 10/02/18 at 04:30 Famotidine (Pepcid Iv) 20 mg BID IV Last administered on 10/04/18 08:24; Admin Dose 20 MG; Start 10/02/18 at 14:00 Allergies: Coded Allergies: No Known Allergy (Verified , 09/29/18) Past Surgical History Past Surgical Hx: cholecystectomy, other (1. History of rectal cancer, status post colostomy, now with colostomy reversal.) Social History Smoking Status: Never smoker Exam/Review of Systems Vital Signs Vitals Vital Signs Date Temp Pulse Resp B/P (MAP) Pulse Ox O2 O2 Flow FiO2 Time Delivery Rate 10/04/18 59 16:09 10/04/18 98.2 18 108/56 93 15:25 (73) 10/01/18 Room Air 23:09 Intake and Output 10/03/18 10/03/18 10/04/18 1515:00 23:00 07:00 IntakeIntake Total 900 ml 300 ml 1400 ml BalanceBalance 900 ml 300 ml 1400 ml Exam Constitutional: alert Head: normocephalic, atraumatic Neck: supple, non-tender Respiratory: clear to auscultation Cardiovascular: regular rate and rhythm (no m/r/g) Gastrointestinal: soft Extremities: normal pulses Labs Result Diagram: 10/02/18 0729 10/01/18 0557 Medications Medications Current Medications Acetaminophen (Tylenol Tab) 650 mg Q6H PRN PO MILD PAIN(1-3)OR ELEVATED TEMP Last administered on 10/04/18 00:18; Admin Dose 650 MG; Start 09/30/18 at 04:10 Sodium Chloride 1,000 ml @ 100 mls/hr Q10H IV Last administered on 10/04/18 10:25; Admin Dose 100 MLS/HR; Start 09/30/18 at 04:30 Ceftriaxone Sodium 50 ml @ 100 mls/hr Q24H IVPB Last administered on 10/04/18 00:12; Admin Dose 100 MLS/HR; Start 10/01/18 at 01:00 Hydromorphone HCl (Dilaudid) 1 mg Q4H PRN IV SEVERE PAIN LEVEL 7-10 Last administered on 10/04/18 13:13; Admin Dose 1 MG; Start 10/01/18 at 13:30 Acetaminophen/ Hydrocodone Bitart ([place] (5/325)) 1 tab Q4H PRN PO MODERATE PAIN LEVEL 4-6 Last administered on 10/02/18 13:36; Admin Dose 1 TAB; Start 10/01/18 at 13:30 Pantoprazole (Protonix Tab) 40 mg DAILY@06 PO Last administered on 10/04/18 05:53; Admin Dose 40 MG; Start 10/02/18 at 06:00 Ondansetron HCl (Zofran Inj) 4 mg Q4H PRN IV NAUSEA AND/OR VOMITING Last administered on 10/03/18 20:39; Admin Dose 4 MG; Start 10/02/18 at 04:30 Famotidine (Pepcid Iv) 20 mg BID IV Last administered on 10/04/18 08:24; Admin Dose 20 MG; Start 10/02/18 at 14:00 CHENTE CONN M.D. Oct 04, 2018 16:17
--- NOTE | 2018-10-04 16:30 | DS ---
Date/Time of Note Date/Time of Note DATE: 10/04/18 TIME: 16:30 Discharge Summary Admission/Discharge Info Admit Date/Time Sep 30, 2018 at 11:49 Discharge Date/Time Consults cardiology dr Sanchez Hospital Course 1. Near syncope, could be secondary to urinary tract infection plus hypotension. Patient also was bradycardic. Heart rate is up to 40s. Much improved now 2. Severe bradycardia. Patient is not on any beta bird. TSH within normal limit, indication of pacemaker per cardiology 3. A pelvic malignancy, questionable. Postmenopausal bleeding 4. Urinary tract infection. Urine culture positive for diphtheroids sensitive to cephalosporins 5. History of rectal cancer stage III status post chemo/radiation status post reversal. 6. History of ventral hernia, status post incarceration. 7. Hypertension, now hypotensive. 8. Hyperlipidemia. PLAN -Hemoglobin stable -Gynecology consultation called with Dr. Flores who will see the patient tomorrow - Ct head neg - cw NS - TSH wnl, HR 40-50, NO indication of pacemaker per cards -IV Protonix - Ambulate -ok to dc per cardiology stand point Home Meds Active Scripts Ciprofloxacin Hcl* (Ciprofloxacin Hcl*) 500 Mg Tablet, 500 MG PO BID, #14 TAB Prov:HARSH ARAIZA 10/04/18 Folic Acid* (Folic Acid*) 1 Mg Tablet, 1 MG PO DAILY for 30 Days, TAB Prov:HARSH ARAIZA 10/04/18 Ferrous Sulfate* (Ferrous Sulfate*) 325 Mg Tabec, 325 MG PO BID for 30 Days, TAB Prov:HARSH ARAIZA 10/04/18 Naproxen* (Naprosyn*) 500 Mg Tablet, 500 MG PO BID PRN for PAIN AND/OR INFLAMMATION, #30 TAB Prov:LISA VAUGHAN PA-C 02/09/17 Reported Medications Gabapentin* (Gabapentin*) Unknown Strength Capsule, PO BID, #60 CAP 09/30/18 Ibuprofen* (Ibuprofen*) 800 Mg Tab, 800 MG PO Q6H PRN for PAIN, TAB 09/30/18 Omeprazole* (Omeprazole*) 20 Mg Capsule., 20 MG PO DAILY, #30 CAP 02/07/16 Losartan Potassium* (Losartan Potassium*) 50 Mg Tablet, 50 MG PO DAILY, TAB 02/07/16 Discontinued Reported Medications [Methocarbanol] No Conflict Check 10/24/17 [Gabapentin] No Conflict Check 10/24/17 [Prednisone] No Conflict Check 10/24/17 Calcium Carbonate/Vitamin D3 (Oyster Shell Calcium + D Cplt) 1 Each Tablet, 1 EACH PO, TAB 02/07/16 Simvastatin* (Simvastatin*) 80 Mg Tablet, 20 MG PO QHS, #30 TAB 02/07/16 Alendronate Sodium* (Alendronate Sodium*) 40 Mg Tablet, 70 MG PO DAILY, #30 TAB 02/07/16 Naproxen* (Naproxen*) 500 Mg Tablet, 500 MG PO BID PRN for INFLAMATION, TAB 10/13/14 Discontinued Scripts Tramadol HCl (Tramadol HCl) 50 Mg Tablet, 50 MG PO Q6 PRN for PAIN, #20 TAB Prov:KRISTY KOHLER PA-C 09/04/18 Albuterol Sulfate* (Ventolin HFA*) 18 Gm Hfa.aer.ad, 2 PUFF INHALATION Q4H, #1 INHALER Prov:JAMMIE VALLADARES 03/10/18 Prednisone* (Prednisone*) 20 Mg Tab, 40 MG PO DAILY for 4 Days, TAB Prov:JAMMIE VALLADARES 03/10/18 Azithromycin* (Zithromax*) 250 Mg Tablet, 250 MG PO .BONI DIRECTED, #6 TAB TAKE 500 MG (2 TABS) THE FIRST DAY THEN 250 MG (1 TAB) DAYS 2-5 Prov:JAMMIE VALLADARES 03/10/18 Benzonatate* (Tessalon Perle*) 100 Mg Capsule, 100 MG PO Q8H PRN for COUGH, #10 CAP Prov:JAMMIE VALLADARES 03/10/18 Promethazine HCl/Codeine (Prometh-Codein 6.25-10 mg/5 ml) 5 Ml Syrup, 5 ML PO QHS PRN for COUGH for 5 Days, #120 ML Prov:CHELSIE PEÑA MD 08/02/17 Amoxicillin* (Amoxicillin*) 500 Mg Cap, 500 MG PO TID for 7 Days, CAP Prov:CHELSIE PEÑA MD 08/02/17 Cephalexin* (Keflex*) 500 Mg Capsule, 500 MG PO QID for 7 Days, CAP Prov:LISA VAUGHAN PA-C 02/09/17 Tramadol HCl (Tramadol HCl) 50 Mg Tablet, 50 MG PO Q4 PRN for PAIN, #20 TAB Prov:LISA VAUGHAN PA-C 02/09/17 Acetaminophen* (Tylophen*) 500 Mg Capsule, 1 CAP PO Q6H PRN for PAIN AND OR ELEVATED TEMP, #20 CAP Prov:DANIKA BLACK NP 08/02/16 Ibuprofen* (Ibuprofen*) 600 Mg Tablet, 600 MG PO Q6H PRN for MILD PAIN LEVEL 1- 3, #30 TAB Prov:LISSY ESCOBAR NP 04/04/15 Primary Care Provider Care Physician HARSH Phelan Oct 04, 2018 16:30
--- NOTE | 2018-10-04 17:17 | PDOCDIS ---
Discharge Instructions DIAGNOSIS Discharge Diagnosis Cevical cancer, uterine bleeding, anemia CONDITION [id number] Patient Condition: [id number] Stable ACTIVITY: [id number] Activity Restrictions: [id number] Slowly Increase Activity Rest between Activity Avoid heavy lifting FOLLOW UP/APPOINTMENTS Follow-up Plan PCP 1 week [place] appointment with dr Abdalla. OTHER ORDERS: Other Orders: cardiology ok to dc, spoke to HARSH Pastor Oct 04, 2018 17:17
[2018-10-04] MEDS ORDERED: FER325 PO (17:20)
[2018-10-04] MEDS ORDERED: FOLI-49 PO (17:32)
[2018-10-04] MEDS ORDERED: CIPR500T4 PO (17:32)
[2018-10-05] VITALS: PULSE 59
[2018-10-05 00:16] VITALS: BP 129/70; PULSE 60; RESP 16
[2018-10-05] MEDS: ACETAMINOPHEN 325 MG TAB PO PRN (00:29)
[2018-10-05] MEDS: CEFTRIAXONE 1 GM/50 ML (PMX) 50 ML IVPB SCH (00:29)
[2018-10-05 03:29] VITALS: BP 110/61; PULSE 49; RESP 18
[2018-10-05 04:00] VITALS: PULSE 52
[2018-10-05] MEDS: PANTOPRAZOLE (EC) 40 MG TAB PO SCH (05:14)
[2018-10-05 07:44] VITALS: BP 122/56; PULSE 68; RESP 18
[2018-10-05] MEDS: FAMOTIDINE 20 MG INJ IV SCH (08:07)
[2018-10-05 08:10] VITALS: PULSE 79
[2018-10-05] MEDS: HYDROmorphONE 1 MG/ML SYG IV PRN (08:16)
== END 2018-10-05 08:50 | disposition home or self-care (01) | DRG 315 ==
LOC: E/R 20:26 → TEL 09-30 00:44 → OBSVTOIN 09-30 11:49
PROVIDERS: ADMIT Internal Medicine Nephrology; ATTEND Internal Medicine Nephrology
DX: I95.9 Hypotension, unspecified (principal); N39.0 Urinary tract infection, site not specified; Z92.3 Personal history of irradiation; C76.3 Malignant neoplasm of pelvis; R55 Syncope and collapse; E78.5 Hyperlipidemia, unspecified; I10 Essential (primary) hypertension; R00.1 Bradycardia, unspecified; Z85.048 Personal history of other malignant neoplasm of rectum, rectosigmoid junction, and anus; Z85.038 Personal history of other malignant neoplasm of large intestine; D64.9 Anemia, unspecified; K21.9 Gastro-esophageal reflux disease without esophagitis; N95.0 Postmenopausal bleeding; Z92.21 Personal history of antineoplastic chemotherapy
CPT/HCPCS: 36415; 70450; 71045; 74176; 74177; 76856; 80048; 80053; 80061; 81001; 83605; 83735; 84100; 84443; 84484; 85014; 85018; 85025; 85610; 85730; 87086; 93005; 93306; G0378; C9113; J0696; J1170; J2270; J2405; J7030; J7040; Q9967